=== PATIENT | female | born 1975 | race Caucasian/White ===

== ENCOUNTER → 2017-08-19 | Outpatient (CLI) | payer OTHER ==
[~2017-08-19] MED LIST: AMBI10TA PO; FOLI1TAB4 PO; LORA2TAB9 PO; MULTCAP PO; ROBA500T PO; TRAM50TA2 PO; VIST50CA PO; VITA100T60 PO; atarax PO
[2017-08-19 12:48] LABS: IMMATURE GRANULOCYTE % 0.4 % (0-0); LYMPH # 1.7 10^3/uL (1.5-4.5); LYMPH % 35.7 % (24.0-44.0); MEAN CORPUSCULAR HGB CONC 31.1 g/dl (32.0-36.5); MEAN CORPUSCULAR VOLUME 77.2 fl (80.0-96.0); MONO # 0.2 10^3/uL (0.0-0.8); MONO % 4.1 % (0.0-5.0); NEUTROPHILS # 2.9 10^3/uL (1.8-7.7); NEUTROPHILS % 59.8 % (36.0-66.0); PLATELET COUNT, AUTOMATED 226 10^3/uL (150-450); RED CELL DISTRIBUTION WIDTH 13.8 % (11.5-14.5); WHITE BLOOD COUNT 4.9 10^3/uL (4.0-10.0)
[2017-08-19 13:31] LABS: ALBUMIN 3.3 GM/DL (3.2-5.2); ALBUMIN/GLOBULIN RATIO 0.97 (1.00-1.93); ALKALINE PHOSPHATASE 129 U/L (45-117); ALT/SGPT 46 U/L (12-78); ANION GAP 9 MEQ/L (8-16); AST/SGOT 20 U/L (15-37); BILIRUBIN,TOTAL 0.3 MG/DL (0.2-1.0); BLOOD UREA NITROGEN 12 MG/DL (7-18); CALCIUM LEVEL 8.8 MG/DL (8.5-10.1); CARBON DIOXIDE LEVEL 28 MEQ/L (21-32); CHLORIDE LEVEL 100 MEQ/L (98-107); CREATININE FOR GFR 0.89 MG/DL (0.55-1.02); GLOMERULAR FILTRATION RATE > 60.0 (>58); GLUCOSE, FASTING 100 MG/DL (70-105); POTASSIUM SERUM 4.7 MEQ/L (3.5-5.1); SODIUM LEVEL 137 MEQ/L (136-145); THYROXINE (T4) 9.8 UG/DL (4.5-12.0); TOTAL PROTEIN 6.7 GM/DL (6.4-8.2)
--- NOTE | 2017-08-20 20:50 | ECGEPIP ---
Stationary ECG Study [facility] Test Date: 2017-08-19 Pat Name: MAIK PADILLA Department: Room: - Gender: F Donation Specialist: AYSHA : 1975 Requested By: Phyllis Orona NPP-BC Order Number: [id number] Reading MD: Gabino Blancas Measurements Intervals [place] Rate: 58 P: 9 [place]: 143 QRS: 20 QRSD: 90 T: -25 QT: 410 QTc: 404 Interpretive Statements Sinus bradycardia Somewhat low voltages with incomplete RBBB, slow precordial R-wave progression and persistent S waves in V5 and V6; body habitus versus pulmonary disease. Subtle ST/T-wave abnormalities Slightly slower heart rate but otherwise unchanged from 05/18/14. Electronically Signed On 08-20-2017 20:50:28 EDT by Gabino Blancas
== END ==
LOC: M LAB 11:40
PROVIDERS: ATTEND Nurse Practitioner Family
DX: F32.4 Major depressive disorder, single episode, in partial remission (principal)

== ENCOUNTER → 2017-10-02 | Outpatient (REF) | payer OTHER ==
[2017-10-02 19:01] LABS: ALBUMIN 3.4 GM/DL (3.2-5.2); ALBUMIN/GLOBULIN RATIO 0.85 (1.00-1.93); ALKALINE PHOSPHATASE 135 U/L (45-117); ALT/SGPT 48 U/L (12-78); ANION GAP 10 MEQ/L (8-16); AST/SGOT 27 U/L (7-37); BILIRUBIN,TOTAL 0.3 MG/DL (0.2-1.0); BLOOD UREA NITROGEN 11 MG/DL (7-18); CALCIUM LEVEL 9.1 MG/DL (8.5-10.1); CARBON DIOXIDE LEVEL 30 MEQ/L (21-32); CHLORIDE LEVEL 100 MEQ/L (98-107); CREATININE FOR GFR 0.91 MG/DL (0.55-1.02); GLOMERULAR FILTRATION RATE > 60.0 (>58); GLUCOSE, FASTING 108 MG/DL (70-105); MAGNESIUM LEVEL 2.1 MG/DL (1.8-2.4); POTASSIUM SERUM 3.8 MEQ/L (3.5-5.1); SODIUM LEVEL 140 MEQ/L (136-145); TOTAL PROTEIN 7.4 GM/DL (6.4-8.2)
== END ==
LOC: M SFHCPLAZ 14:53
PROVIDERS: ATTEND Physician Assistant Medical
DX: R06.2 Wheezing (principal); R60.9 Edema, unspecified

== ENCOUNTER → 2017-10-16 | Outpatient (CLI) | payer OTHER ==
--- NOTE | 2017-10-16 16:38 | REPMRS ---
Patient History The patient states she has not had a clinical breast exam in over a year. Baseline Mammogram No known family history of cancer. Digital Woman Screen Mammo: October 16, 2017 - Exam #: [id number] Bilateral CC and MLO view(s) were taken. Technologist: Olivia Tillman, Technologist FINDINGS: There are scattered fibroglandular densities. There is no evidence of cancer on this mammogram. ASSESSMENT: BI-RADS/ACR category 2 mammogram. Benign finding(s). Recommendation Routine screening mammogram of both breasts in 1 year (for women over age 40). This mammogram was interpreted with the aid of an FDA-approved computer-aided dectection system. Electronically Signed By: Barry Bernstein MD 10/16/17 [id number]
== END ==
LOC: M WHC 14:32
PROVIDERS: ATTEND Physician Assistant Medical
DX: Z12.31 Encounter for screening mammogram for malignant neoplasm of breast (principal)

== ENCOUNTER → 2018-05-18 | Outpatient (CLI) | payer OTHER ==
[2018-05-18 11:20] LABS: BASO % 0.1 % (0.0-1.0); HEMATOCRIT 38.2 % (36.0-47.0); HEMOGLOBIN 11.8 g/dl (12.0-15.5); IMMATURE GRANULOCYTE % 0.4 % (0-3.0); LYMPH % 40.2 % (24.0-44.0); MEAN CORPUSCULAR HEMOGLOBIN 22.9 pg (27.0-33.0); MEAN CORPUSCULAR HGB CONC 30.9 g/dl (32.0-36.5); MEAN CORPUSCULAR VOLUME 74.2 fl (80.0-96.0); MONO # 0.5 10^3/uL (0.0-0.8); MONO % 6.5 % (0.0-5.0); NEUTROPHILS % 52.8 % (36.0-66.0); PLATELET COUNT, AUTOMATED 307 10^3/uL (150-450); RED BLOOD COUNT 5.15 10^6/uL (4.00-5.40); WHITE BLOOD COUNT 7.5 10^3/uL (4.0-10.0)
[2018-05-18 11:57] LABS: ALBUMIN 3.2 GM/DL (3.2-5.2); ALBUMIN/GLOBULIN RATIO 0.86 (1.00-1.93); ALKALINE PHOSPHATASE 130 U/L (45-117); ALT/SGPT 38 U/L (12-78); ANION GAP 5 MEQ/L (8-16); AST/SGOT 18 U/L (7-37); BILIRUBIN,TOTAL 0.2 MG/DL (0.2-1.0); BLOOD UREA NITROGEN 20 MG/DL (7-18); CALCIUM LEVEL 8.7 MG/DL (8.5-10.1); CARBON DIOXIDE LEVEL 36 MEQ/L (21-32); CHLORIDE LEVEL 98 MEQ/L (98-107); CHOLESTEROL LEVEL 174 MG/DL (<200); CHOLESTEROL RISK RATIO 5.272 (<5); CREATININE FOR GFR 0.97 MG/DL (0.55-1.30); FREE T4 1.06 NG/DL (0.76-1.46); GLOMERULAR FILTRATION RATE > 60.0 (>58); GLUCOSE, FASTING 111 MG/DL (70-100); HDL CHOLESTEROL 33 MG/DL (>40); LDL CHOLESTEROL 91.8 MG/DL (<100); MAGNESIUM LEVEL 2.3 MG/DL (1.8-2.4); NON-HDL-C 141 MG/DL; POTASSIUM SERUM 3.6 MEQ/L (3.5-5.1); SODIUM LEVEL 139 MEQ/L (136-145); TOTAL PROTEIN 6.9 GM/DL (6.4-8.2); TRIGLYCERIDES LEVEL 246 MG/DL (<150)
== END ==
LOC: M LAB 10:41
DX: R06.2 Wheezing (principal)
CPT/HCPCS: 83735

== ENCOUNTER 2018-08-23 06:06 | Inpatient (IN) | payer OTHER ==
[2018-08-23] MEDS: SUCCINYLCHOLINE INJ 200 MG/10 ML VIAL (J0330) IV ×5 (06:16→06:45)
[2018-08-23] MEDS: NALOXONE INJ 2 MG/2 ML SYRINGE (J2310) IV (06:16)
[2018-08-23] MEDS ORDERED: SUCCINYLCHOLINE INJ 200 MG/10 ML VIAL (J0330) As Ordered (06:22)
[2018-08-23] MEDS: ETOMIDATE INJ 20MG/10ML VIAL IV ×2 (06:35→06:45)
[2018-08-23] MEDS: PROPOFOL 200 MG/20 ML VIAL IV (06:45)
[2018-08-23] MEDS ORDERED: PROPOFOL 1,000 MG/100 ML VIAL As Ordered ×2 (06:45→08:23)
[2018-08-23] MEDS: PROPOFOL 1,000 MG in APPROPRIATE DILUENT 1 EA IV ×6 (07:06→21:35)
[2018-08-23] MEDS ORDERED: ISOVUE-370 76% 100ML VIAL (Q9967) As Ordered ×2 (07:15→08:48)
[2018-08-23] MEDS: NS 1,000 ML IV ×2 (07:15→07:45)
[2018-08-23] MEDS ORDERED: fentaNYL 100 MCG/2 ML INJECTION (J3010) As Ordered (07:23)
[2018-08-23] MEDS: fentaNYL 100 MCG/2 ML INJECTION (J3010) IV ×2 (07:24→07:30)
[2018-08-23] MEDS: NS 850 ML IV (08:00)
[2018-08-23 08:02] LABS: ABG BASE EXCESS 0.3 (-2.0-2.0); ABG HCO3 22.2 MEQ/L (22.0-26.0); ABG O2 SATURATION 97.2 % (95.0-99.0); ABG PARTIAL PRESSURE CO2 28.1 mmHg (35.0-45.0); ABG PARTIAL PRESSURE O2 86.7 mmHg (75.0-100.0); ABG STANDARD HCO3 24.7 MEQ/L (22.0-26.0); ABG pH (ARTERIAL) 7.515 UNITS (7.350-7.450)
[2018-08-23 08:35] LABS: LIPASE 451 U/L (73-393)
[2018-08-23 08:38] LABS: AMMONIA 29 uMOL/L (<32)
[2018-08-23 08:43] LABS: HCG, SERUM QUANTITATIVE < 1.0 MIU/ML
[2018-08-23 08:45] LABS: LACTIC ACID SEPSIS PROTOCOL 3.9 MMOL/L (0.4-2.0)
[2018-08-23 08:57] LABS: ACETAMINOPHEN LEVEL < 2.0 UG/ML (10.0-30.0); ALBUMIN 2.1 GM/DL (3.2-5.2); ALBUMIN/GLOBULIN RATIO 0.46 (1.00-1.93); ALKALINE PHOSPHATASE 231 U/L (45-117); ALT/SGPT 83 U/L (12-78); ANION GAP 9 MEQ/L (8-16); AST/SGOT 168 U/L (7-37); BILIRUBIN,DIRECT 0.3 MG/DL (0.0-0.2); BILIRUBIN,TOTAL 0.7 MG/DL (0.2-1.0); BLOOD UREA NITROGEN 9 MG/DL (7-18); CALCIUM LEVEL 8.1 MG/DL (8.5-10.1); CARBON DIOXIDE LEVEL 29 MEQ/L (21-32); CHLORIDE LEVEL 99 MEQ/L (98-107); CPK CREATINE PHOSPHOKINASE 148 U/L (26-192); CREATININE FOR GFR 1.18 MG/DL (0.55-1.30); ETHYL ALCOHOL (ETHANOL) < 0.003 % (0.000-0.010); GLOMERULAR FILTRATION RATE 53.5 (>58); GLUCOSE, FASTING 233 MG/DL (70-100); SALICYLATE LEVEL < 1.7 MG/DL (5.0-30.0); SODIUM LEVEL 137 MEQ/L (136-145); TOTAL PROTEIN 6.7 GM/DL (6.4-8.2); TROPONIN I 0.72 NG/ML (< 0.10)
[2018-08-23 09:05] LABS: HEMATOCRIT 34.2 % (36.0-47.0); HEMOGLOBIN 10.3 g/dl (12.0-15.5); MEAN CORPUSCULAR HEMOGLOBIN 22.7 pg (27.0-33.0); MEAN CORPUSCULAR HGB CONC 30.1 g/dl (32.0-36.5); MEAN CORPUSCULAR VOLUME 75.3 fl (80.0-96.0); RED BLOOD COUNT 4.54 10^6/uL (4.00-5.40); RED CELL DISTRIBUTION WIDTH 17.2 % (11.5-14.5); WHITE BLOOD COUNT 18.2 10^3/uL (4.0-10.0)
[2018-08-23 09:09] LABS: ADD MANUAL DIFFER YES; DIFF SLIDE NUMBER 87; POS COUNT POS FLAG; POSITIVE MORPH POS FLAG
[2018-08-23 09:28] LABS: BANDS 2 % (< 11); LYMPHOCYTES 13 % (16-52); NEUTROPHILS 85 % (35-75)
[2018-08-23 09:29] LABS: PLATELET CLUMPS MODERATE AMT; PLATELET ESTIMATE NORMAL (NORMAL)
[2018-08-23 09:30] LABS: POLYCHROMASIA 1+
[2018-08-23] MEDS: ACETAMINOPHEN 650 MG SUPP PR (09:45)
[2018-08-23] MEDS: LevoFLOXacin IV 750 MG in APPROPRIATE DILUENT 1 EA IV (09:55)
[2018-08-23 10:00] LABS: NT-PRO BNP 159 PG/ML (<125)
[2018-08-23] MEDS: KCL 10MEQ/100ML SWI (KRUN) 10 MEQ in APPROPRIATE DILUENT 1 EA IV (10:00)
[2018-08-23 10:07] LABS: MAGNESIUM LEVEL 2.3 MG/DL (1.8-2.4)
[2018-08-23] MEDS ORDERED: NOREPINEPHRINE BITARTRATE 8 MG in D5W 492 ML IV ×2 (10:15→10:50)
[2018-08-23] MEDS ORDERED: ALBUTEROL SULFATE 2.5 MG/0.5 ML INH NEB SOLN NEB (10:15)
[2018-08-23] MEDS ORDERED: NS IV ×2 (10:18→10:30)
[2018-08-23] MEDS ORDERED: NOREPINEPHRINE 4 MG/4 ML AMP As Ordered (10:18)
[2018-08-23] MEDS ORDERED: NOREPINEPHRINE BITARTRATE IV ×2 (10:18→10:30)
[2018-08-23] MEDS: NOREPINEPHRINE BITARTRATE IV (10:30)
[2018-08-23] MEDS: NS IV (10:30)
[2018-08-23] MEDS ORDERED: MIDAZOLAM INJ 2 MG/2 ML VIAL (J2250) As Ordered (10:42)
[2018-08-23] MEDS: MIDAZOLAM INJ 2 MG/2 ML VIAL (J2250) IV (10:45)
[2018-08-23 11:00] LABS: AMORPHOUS SEDIMENT RFX SMALL (NEGATIVE); KETONE, URINE AUTO RFX NEGATIVE (NEGATIVE); LEUKOCYTE ESTERASE UR AUTO RFX NEGATIVE (NEGATIVE); MUCUS, URINE RFX SMALL (NEGATIVE); NITRITE, URINE AUTO RFX NEGATIVE (NEGATIVE); RBC, URINE AUTO RFX 6 /HPF (0-3); SPECIFIC GRAVITY UR AUTO RFX 1.046 (1.002-1.035); SQUAM EPITHELIAL CELL UR AURFX 1 /HPF (0-6)
[2018-08-23] MEDS ORDERED: ACETAMINOPHEN 650 MG SUPP PR (11:00)
[2018-08-23 11:02] LABS: WBC, URINE AUTO RFX 41 /HPF (0-3)
[2018-08-23 11:14] LABS: AMPHETAMINES LEVEL URINE NEGATIVE (NEGATIVE); BARBITURATES URINE NEGATIVE (NEGATIVE); BENZODIAZEPINES URINE NEGATIVE (NEGATIVE); CANNABINOIDS URINE NEGATIVE (NEGATIVE); COCAINE METABOLITE URINE NEGATIVE (NEGATIVE); METHADONE URINE POSITIVE (NEGATIVE); OPIATES URINE NEGATIVE (NEGATIVE); PHENCYCLIDINE URINE NEGATIVE (NEGATIVE)
[2018-08-23] MEDS ORDERED: LIDOCAINE 1% MDV 20ML VIAL As Ordered (11:20)
[2018-08-23] MEDS: KCL 40MEQ IN D5/0.45NS 1000ML 1,000 ML IV ×2 (12:01→18:54)
[2018-08-23] MEDS: MEROPENEM INJ 1 GM in APPROPRIATE DILUENT 1 EA IV ×2 (12:08→19:34)
[2018-08-23] MEDS: VANCOMYCIN HCL 1,000 MG, VIAL MATE ADAPTER 1 EACH in D5W/0.2% SODIUM CHLORIDE 250 ML IV ×2 (12:23→18:02)
[2018-08-23 13:17] LABS: INR 1.18; PROTHROMBIN TIME 15.1 SECONDS (12.1-14.4)
[2018-08-23 13:18] LABS: PARTIAL THROMBOPLASTIN TIME 27.1 SECONDS (25.4-37.6)
[2018-08-23] MEDS: ALBUTEROL SULFATE 2.5 MG/0.5 ML INH NEB SOLN NEB ×3 (13:26→20:06)
[2018-08-23 13:38] LABS: TROPONIN I 2.17 NG/ML (< 0.10)
[2018-08-23 16:39] LABS: ANION GAP 10 MEQ/L (8-16); BLOOD UREA NITROGEN 9 MG/DL (7-18); CALCIUM LEVEL 7.5 MG/DL (8.5-10.1); CARBON DIOXIDE LEVEL 24 MEQ/L (21-32); CHLORIDE LEVEL 109 MEQ/L (98-107); CREATININE FOR GFR 1.07 MG/DL (0.55-1.30); GLOMERULAR FILTRATION RATE 59.9 (>58); GLUCOSE, FASTING 212 MG/DL (70-100); POTASSIUM SERUM 3.2 MEQ/L (3.5-5.1); SODIUM LEVEL 143 MEQ/L (136-145)
[2018-08-23] MEDS: ASPIRIN 325 MG TAB NG (18:01)
[2018-08-23] MEDS: CLOPIDOGREL 300 MG TAB (PLAVIX) NG (18:02)
[2018-08-23] MEDS: HEPARIN SOD (PORCINE) 5000 UNITS/ML VIAL SC ×2 (18:02→21:30)
[2018-08-23] MEDS: POTASSIUM CHLORIDE 10% LIQ 20 MEQ/15 ML UDC PO (18:09)
[2018-08-23 20:47] LABS: CPK CREATINE PHOSPHOKINASE 301 U/L (26-192); MB/CK RELATIVE INDEX 2.59 (< OR =4); TROPONIN I 1.82 NG/ML (< 0.10)
[2018-08-23] MEDS ORDERED: CHLORHEXIDINE ORAL RINSE 0.12%/15ML 120ML BOTTLE MT (21:00)
[2018-08-23] MEDS: NOREPINEPHRINE BITARTRATE 8 MG in D5W 492 ML IV (22:14)
[2018-08-23] MEDS: CHLORHEXIDINE ORAL RINSE 0.12%/15ML 120ML BOTTLE MT (23:40)
[2018-08-24] MEDS: ALBUTEROL SULFATE 2.5 MG/0.5 ML INH NEB SOLN NEB ×7 (00:32→23:36)
[2018-08-24] MEDS: PROPOFOL 1,000 MG in APPROPRIATE DILUENT 1 EA IV ×5 (01:33→23:21)
[2018-08-24] MEDS: KCL 40MEQ IN D5/0.45NS 1000ML 1,000 ML IV ×4 (01:34→20:25)
[2018-08-24] MEDS: MEROPENEM INJ 1 GM in APPROPRIATE DILUENT 1 EA IV ×3 (04:24→20:25)
[2018-08-24] MEDS: VANCOMYCIN HCL 1,000 MG, VIAL MATE ADAPTER 1 EACH in D5W/0.2% SODIUM CHLORIDE 250 ML IV ×2 (05:19→17:42)
[2018-08-24] MEDS: HEPARIN SOD (PORCINE) 5000 UNITS/ML VIAL SC ×3 (05:19→20:26)
[2018-08-24 05:42] LABS: ABG BASE EXCESS 1.7 (-2.0-2.0); ABG HCO3 25.1 MEQ/L (22.0-26.0); ABG O2 SATURATION 95.6 % (95.0-99.0); ABG PARTIAL PRESSURE CO2 34.5 mmHg (35.0-45.0); ABG PARTIAL PRESSURE O2 76.3 mmHg (75.0-100.0); ABG TOTAL CO2 26.1 MEQ/L (22.0-29.0); ABG pH (ARTERIAL) 7.479 UNITS (7.350-7.450)
[2018-08-24 06:58] LABS: BASO % 0.2 % (0.0-1.0); EOS % 0.1 % (0.0-3.0); HEMATOCRIT 28.9 % (36.0-47.0); HEMOGLOBIN 8.9 g/dl (12.0-15.5); IMMATURE GRANULOCYTE % 1.9 % (0-3.0); LYMPH # 1.8 10^3/uL (1.5-4.5); LYMPH % 20.1 % (24.0-44.0); MEAN CORPUSCULAR HEMOGLOBIN 22.9 pg (27.0-33.0); MEAN CORPUSCULAR HGB CONC 30.8 g/dl (32.0-36.5); MEAN CORPUSCULAR VOLUME 74.5 fl (80.0-96.0); MONO # 0.5 10^3/uL (0.0-0.8); MONO % 5.6 % (0.0-5.0); NEUTROPHILS # 6.4 10^3/uL (1.8-7.7); NEUTROPHILS % 72.1 % (36.0-66.0); PLATELET COUNT, AUTOMATED 269 10^3/uL (150-450); RED BLOOD COUNT 3.88 10^6/uL (4.00-5.40); RED CELL DISTRIBUTION WIDTH 17.7 % (11.5-14.5); WHITE BLOOD COUNT 8.8 10^3/uL (4.0-10.0)
[2018-08-24 07:28] LABS: ALBUMIN 1.7 GM/DL (3.2-5.2); ALBUMIN/GLOBULIN RATIO 0.41 (1.00-1.93); ALKALINE PHOSPHATASE 133 U/L (45-117); ALT/SGPT 47 U/L (12-78); ANION GAP 9 MEQ/L (8-16); AST/SGOT 46 U/L (7-37); BILIRUBIN,TOTAL 0.2 MG/DL (0.2-1.0); BLOOD UREA NITROGEN 5 MG/DL (7-18); CALCIUM LEVEL 7.7 MG/DL (8.5-10.1); CARBON DIOXIDE LEVEL 25 MEQ/L (21-32); CHLORIDE LEVEL 111 MEQ/L (98-107); CHOLESTEROL LEVEL 91 MG/DL (< 200); CPK CREATINE PHOSPHOKINASE 344 U/L (26-192); CREATININE FOR GFR 0.72 MG/DL (0.55-1.30); GLOMERULAR FILTRATION RATE > 60.0 (>58); GLUCOSE, FASTING 181 MG/DL (70-100); LDH LACTATE DEHYDROGENASE 361 U/L (84-246); PHOSPHORUS LEVEL 2.4 MG/DL (2.5-4.9); POTASSIUM SERUM 2.7 MEQ/L (3.5-5.1); SODIUM LEVEL 145 MEQ/L (136-145); TOTAL PROTEIN 5.8 GM/DL (6.4-8.2); TRIGLYCERIDES LEVEL 139 MG/DL (<150)
[2018-08-24] MEDS: CHLORHEXIDINE ORAL RINSE 0.12%/15ML 120ML BOTTLE MT ×2 (08:06→20:25)
[2018-08-24] MEDS: POTASSIUM CHLORIDE 10% LIQ 20 MEQ/15 ML UDC GT (08:06)
[2018-08-24] MEDS: ASPIRIN 325 MG TAB NG (08:06)
[2018-08-24] MEDS: PANTOPRAZOLE 40MG INJ (PROTONIX) (C9113) IV (08:06)
[2018-08-24] MEDS: CLOPIDOGREL 75 MG TAB NG (08:06)
[2018-08-24] MEDS: methylPREDNISolone INJ 125 MG/2 ML VIAL (J2930) IV ×2 (10:14→16:09)
[2018-08-24 12:49] LABS: POTASSIUM SERUM 3.6 MEQ/L (3.5-5.1)
[2018-08-24 13:03] LABS: BEDSIDE GLUCOSE 200 MG/DL (70-105)
[2018-08-24] MEDS ORDERED: METOCLOPRAMIDE INJ 10MG/2ML VIAL (J2765) IV (15:45)
[2018-08-24] MEDS ORDERED: METOCLOPRAMIDE INJ 10MG/2ML VIAL (J2765) As Ordered (16:07)
[2018-08-24] MEDS: METOCLOPRAMIDE INJ 10MG/2ML VIAL (J2765) IV ×2 (16:11→23:20)
[2018-08-24 17:47] LABS: VANCOMYCIN LEVEL TROUGH 7.6 UG/ML (10.0-20.0)
[2018-08-24 18:02] LABS: BEDSIDE GLUCOSE 272 MG/DL (70-105)
[2018-08-24] MEDS: POTASSIUM CHLORIDE 10% LIQ 20 MEQ/15 ML UDC PO (20:26)
[2018-08-25] MEDS: VANCOMYCIN HCL 1,000 MG, VIAL MATE ADAPTER 1 EACH in D5W/0.2% SODIUM CHLORIDE 250 ML IV ×2 (01:48→09:09)
[2018-08-25] MEDS: methylPREDNISolone INJ 125 MG/2 ML VIAL (J2930) IV ×3 (01:48→16:36)
[2018-08-25] MEDS: PROPOFOL 1,000 MG in APPROPRIATE DILUENT 1 EA IV ×4 (02:53→19:54)
[2018-08-25] MEDS: KCL 40MEQ IN D5/0.45NS 1000ML 1,000 ML IV ×3 (03:47→18:03)
[2018-08-25] MEDS: MEROPENEM INJ 1 GM in APPROPRIATE DILUENT 1 EA IV (03:47)
[2018-08-25] MEDS: ALBUTEROL SULFATE 2.5 MG/0.5 ML INH NEB SOLN NEB ×6 (04:07→23:35)
[2018-08-25 05:45] LABS: ABG BASE EXCESS 1.4 (-2.0-2.0); ABG HCO3 24.2 MEQ/L (22.0-26.0); ABG O2 SATURATION 97.1 % (95.0-99.0); ABG PARTIAL PRESSURE CO2 30.9 mmHg (35.0-45.0); ABG PARTIAL PRESSURE O2 82.5 mmHg (75.0-100.0); ABG STANDARD HCO3 25.7 MEQ/L (22.0-26.0); ABG TOTAL CO2 25.1 MEQ/L (22.0-29.0); ABG pH (ARTERIAL) 7.511 UNITS (7.350-7.450)
[2018-08-25] MEDS: HEPARIN SOD (PORCINE) 5000 UNITS/ML VIAL SC ×3 (06:00→20:00)
[2018-08-25] MEDS: METOCLOPRAMIDE INJ 10MG/2ML VIAL (J2765) IV ×3 (06:04→22:00)
[2018-08-25 07:06] LABS: BASO % 0.1 % (0.0-1.0); HEMATOCRIT 26.3 % (36.0-47.0); HEMOGLOBIN 8.2 g/dl (12.0-15.5); IMMATURE GRANULOCYTE % 2.1 % (0-3.0); LYMPH # 1.5 10^3/uL (1.5-4.5); LYMPH % 20.5 % (24.0-44.0); MEAN CORPUSCULAR HEMOGLOBIN 23.1 pg (27.0-33.0); MEAN CORPUSCULAR HGB CONC 31.2 g/dl (32.0-36.5); MEAN CORPUSCULAR VOLUME 74.1 fl (80.0-96.0); MONO # 0.5 10^3/uL (0.0-0.8); MONO % 6.7 % (0.0-5.0); NEUTROPHILS # 5.3 10^3/uL (1.8-7.7); NEUTROPHILS % 70.6 % (36.0-66.0); PLATELET COUNT, AUTOMATED 216 10^3/uL (150-450); RED BLOOD COUNT 3.55 10^6/uL (4.00-5.40); WHITE BLOOD COUNT 7.5 10^3/uL (4.0-10.0)
[2018-08-25 08:02] LABS: ALBUMIN 1.6 GM/DL (3.2-5.2); ALBUMIN/GLOBULIN RATIO 0.52 (1.00-1.93); ALKALINE PHOSPHATASE 106 U/L (45-117); ALT/SGPT 38 U/L (12-78); ANION GAP 5 MEQ/L (8-16); AST/SGOT 26 U/L (7-37); BILIRUBIN,TOTAL 0.1 MG/DL (0.2-1.0); BLOOD UREA NITROGEN 6 MG/DL (7-18); CALCIUM LEVEL 7.6 MG/DL (8.5-10.1); CARBON DIOXIDE LEVEL 27 MEQ/L (21-32); CHLORIDE LEVEL 106 MEQ/L (98-107); CHOLESTEROL LEVEL 100 MG/DL (< 200); CPK CREATINE PHOSPHOKINASE 181 U/L (26-192); CREATININE FOR GFR 0.64 MG/DL (0.55-1.30); GLOMERULAR FILTRATION RATE > 60.0 (>58); GLUCOSE, FASTING 286 MG/DL (70-100); LDH LACTATE DEHYDROGENASE 430 U/L (84-246); PHOSPHORUS LEVEL 1.8 MG/DL (2.5-4.9); POTASSIUM SERUM 4.3 MEQ/L (3.5-5.1); SODIUM LEVEL 138 MEQ/L (136-145); TOTAL PROTEIN 4.7 GM/DL (6.4-8.2); TRIGLYCERIDES LEVEL 152 MG/DL (<150)
[2018-08-25] MEDS: PANTOPRAZOLE 40MG INJ (PROTONIX) (C9113) IV (09:08)
[2018-08-25] MEDS: CLOPIDOGREL 75 MG TAB NG (09:09)
[2018-08-25] MEDS: ASPIRIN 325 MG TAB NG (09:09)
[2018-08-25] MEDS: NEUTRA-PHOS 1.25 GM PACKET PO ×3 (09:09→20:00)
[2018-08-25] MEDS: CHLORHEXIDINE ORAL RINSE 0.12%/15ML 120ML BOTTLE MT ×2 (09:10→19:54)
[2018-08-25] MEDS: POTASSIUM CHLORIDE 10% LIQ 20 MEQ/15 ML UDC PO ×2 (09:12→20:00)
[2018-08-25 09:49] LABS: ABG BASE EXCESS -0.9 (-2.0-2.0); ABG HCO3 20.8 MEQ/L (22.0-26.0); ABG O2 SATURATION 92.2 % (95.0-99.0); ABG PARTIAL PRESSURE CO2 25.3 mmHg (35.0-45.0); ABG PARTIAL PRESSURE O2 59.6 mmHg (75.0-100.0); ABG STANDARD HCO3 23.7 MEQ/L (22.0-26.0); ABG TOTAL CO2 21.6 MEQ/L (22.0-29.0); ABG pH (ARTERIAL) 7.533 UNITS (7.350-7.450)
[2018-08-25] MEDS: MIDAZOLAM INJ 2 MG/2 ML VIAL (J2250) IV ×2 (11:40→14:51)
[2018-08-25] MEDS: HumaLOG INSULIN (NovoLOG) PER UNIT SC ×2 (12:00→17:57)
[2018-08-25 12:29] LABS: BEDSIDE GLUCOSE 360 MG/DL (70-105)
[2018-08-25] MEDS ORDERED: GLUCOSE 4 GM CHEW TABLET PO (12:30)
[2018-08-25] MEDS ORDERED: GLUCAGON FOR INJ 1 MG VIAL (J1610) SC (12:30)
[2018-08-25] MEDS ORDERED: DEXTROSE 50% 50 ML SYRINGE IV (12:30)
[2018-08-25] MEDS: LevoFLOXacin IV 750 MG in APPROPRIATE DILUENT 1 EA IV (14:51)
[2018-08-25 16:47] LABS: BEDSIDE GLUCOSE 332 MG/DL (70-105)
[2018-08-25 17:22] LABS: VANCOMYCIN LEVEL TROUGH 11.2 UG/ML (10.0-20.0)
[2018-08-25] MEDS: VANCOMYCIN HCL 1,000 MG, VIAL MATE ADAPTER 1 EACH in D5W 250 ML IV ×2 (17:56→19:53)
[2018-08-25 23:20] LABS: BEDSIDE GLUCOSE 341 MG/DL (70-105)
[2018-08-26] MEDS: HumaLOG INSULIN (NovoLOG) PER UNIT SC ×4 (00:03→18:05)
[2018-08-26] MEDS: KCL 40MEQ IN D5/0.45NS 1000ML 1,000 ML IV (00:03)
[2018-08-26] MEDS: methylPREDNISolone INJ 125 MG/2 ML VIAL (J2930) IV (00:04)
[2018-08-26] MEDS: PROPOFOL 1,000 MG in APPROPRIATE DILUENT 1 EA IV ×6 (00:24→23:16)
[2018-08-26] MEDS: VANCOMYCIN HCL 1,000 MG, VIAL MATE ADAPTER 1 EACH in D5W 250 ML IV (02:28)
[2018-08-26] MEDS: METOCLOPRAMIDE INJ 10MG/2ML VIAL (J2765) IV ×4 (04:00→20:44)
[2018-08-26] MEDS: ALBUTEROL SULFATE 2.5 MG/0.5 ML INH NEB SOLN NEB ×6 (04:35→23:14)
[2018-08-26 04:44] LABS: BASO % 0.2 % (0.0-1.0); HEMATOCRIT 27.8 % (36.0-47.0); HEMOGLOBIN 8.3 g/dl (12.0-15.5); IMMATURE GRANULOCYTE % 2.5 % (0-3.0); LYMPH # 0.9 10^3/uL (1.5-4.5); LYMPH % 13.4 % (24.0-44.0); MEAN CORPUSCULAR HEMOGLOBIN 22.7 pg (27.0-33.0); MEAN CORPUSCULAR HGB CONC 29.9 g/dl (32.0-36.5); MEAN CORPUSCULAR VOLUME 76.2 fl (80.0-96.0); MONO # 0.2 10^3/uL (0.0-0.8); MONO % 3.1 % (0.0-5.0); NEUTROPHILS # 5.2 10^3/uL (1.8-7.7); NEUTROPHILS % 80.8 % (36.0-66.0); PLATELET COUNT, AUTOMATED 234 10^3/uL (150-450); RED BLOOD COUNT 3.65 10^6/uL (4.00-5.40); RED CELL DISTRIBUTION WIDTH 18.2 % (11.5-14.5); WHITE BLOOD COUNT 6.4 10^3/uL (4.0-10.0)
[2018-08-26 05:10] LABS: ALBUMIN 1.8 GM/DL (3.2-5.2); ALBUMIN/GLOBULIN RATIO 0.45 (1.00-1.93); ALKALINE PHOSPHATASE 104 U/L (45-117); ALT/SGPT 41 U/L (12-78); ANION GAP 5 MEQ/L (8-16); AST/SGOT 19 U/L (7-37); BILIRUBIN,TOTAL 0.2 MG/DL (0.2-1.0); BLOOD UREA NITROGEN 10 MG/DL (7-18); CALCIUM LEVEL 8.1 MG/DL (8.5-10.1); CARBON DIOXIDE LEVEL 27 MEQ/L (21-32); CHLORIDE LEVEL 103 MEQ/L (98-107); CHOLESTEROL LEVEL 110 MG/DL (< 200); CPK CREATINE PHOSPHOKINASE 138 U/L (26-192); CREATININE FOR GFR 0.68 MG/DL (0.55-1.30); GLOMERULAR FILTRATION RATE > 60.0 (>58); GLUCOSE, FASTING 360 MG/DL (70-100); LDH LACTATE DEHYDROGENASE 261 U/L (84-246); PHOSPHORUS LEVEL 2.5 MG/DL (2.5-4.9); POTASSIUM SERUM 5.3 MEQ/L (3.5-5.1); SODIUM LEVEL 135 MEQ/L (136-145); TOTAL PROTEIN 5.8 GM/DL (6.4-8.2); TRIGLYCERIDES LEVEL 185 MG/DL (<150)
[2018-08-26 05:40] LABS: ABG BASE EXCESS 2.5 (-2.0-2.0); ABG HCO3 25.6 MEQ/L (22.0-26.0); ABG O2 SATURATION 97.2 % (95.0-99.0); ABG PARTIAL PRESSURE CO2 33.6 mmHg (35.0-45.0); ABG PARTIAL PRESSURE O2 86.8 mmHg (75.0-100.0); ABG STANDARD HCO3 26.7 MEQ/L (22.0-26.0); ABG TOTAL CO2 26.6 MEQ/L (22.0-29.0); ABG pH (ARTERIAL) 7.499 UNITS (7.350-7.450)
[2018-08-26] MEDS: HEPARIN SOD (PORCINE) 5000 UNITS/ML VIAL SC ×3 (05:41→20:45)
[2018-08-26] MEDS: KCL 20MEQ IN D5/0.45NS 1000ML 1,000 ML IV ×2 (09:44→22:20)
[2018-08-26] MEDS: NEUTRA-PHOS 1.25 GM PACKET PO ×3 (09:48→20:44)
[2018-08-26] MEDS: PANTOPRAZOLE 40MG INJ (PROTONIX) (C9113) IV (09:49)
[2018-08-26] MEDS: CHLORHEXIDINE ORAL RINSE 0.12%/15ML 120ML BOTTLE MT ×2 (09:49→20:44)
[2018-08-26] MEDS: methylPREDNISolone INJ 40 MG/1 ML VIAL (J2920) IV ×2 (09:49→17:07)
[2018-08-26] MEDS: CLOPIDOGREL 75 MG TAB NG (09:49)
[2018-08-26] MEDS: ASPIRIN 325 MG TAB NG (09:49)
[2018-08-26 13:07] LABS: BEDSIDE GLUCOSE 238 MG/DL (70-105)
[2018-08-26] MEDS: cefTRIAXone SOD 1 GM in D5W MINI-BAG PLUS 50 ML IV (13:18)
[2018-08-26 17:46] LABS: BEDSIDE GLUCOSE 210 MG/DL (70-105)
[2018-08-27 00:15] LABS: BEDSIDE GLUCOSE 193 MG/DL (70-105)
[2018-08-27] MEDS: methylPREDNISolone INJ 40 MG/1 ML VIAL (J2920) IV ×2 (01:00→12:44)
[2018-08-27] MEDS: PROPOFOL 1,000 MG in APPROPRIATE DILUENT 1 EA IV ×2 (03:29→07:40)
[2018-08-27] MEDS: METOCLOPRAMIDE INJ 10MG/2ML VIAL (J2765) IV ×4 (04:00→18:09)
[2018-08-27] MEDS: ALBUTEROL SULFATE 2.5 MG/0.5 ML INH NEB SOLN NEB ×5 (04:27→20:51)
[2018-08-27 05:34] LABS: ABG BASE EXCESS 4.2 (-2.0-2.0); ABG O2 SATURATION 95.1 % (95.0-99.0); ABG PARTIAL PRESSURE CO2 33.7 mmHg (35.0-45.0); ABG PARTIAL PRESSURE O2 71.6 mmHg (75.0-100.0); ABG STANDARD HCO3 28.2 MEQ/L (22.0-26.0); ABG TOTAL CO2 28.1 MEQ/L (22.0-29.0); ABG pH (ARTERIAL) 7.522 UNITS (7.350-7.450)
[2018-08-27] MEDS: HEPARIN SOD (PORCINE) 5000 UNITS/ML VIAL SC ×3 (05:40→21:06)
[2018-08-27] MEDS: HumaLOG INSULIN (NovoLOG) PER UNIT SC ×4 (05:40→18:08)
[2018-08-27 05:41] LABS: BEDSIDE GLUCOSE 194 MG/DL (70-105)
[2018-08-27 05:47] LABS: HEMATOCRIT 30.6 % (36.0-47.0); HEMOGLOBIN 9.4 g/dl (12.0-15.5); IMMATURE GRANULOCYTE % 2.6 % (0-3.0); LYMPH # 1.6 10^3/uL (1.5-4.5); LYMPH % 20.5 % (24.0-44.0); MEAN CORPUSCULAR HEMOGLOBIN 22.8 pg (27.0-33.0); MEAN CORPUSCULAR HGB CONC 30.7 g/dl (32.0-36.5); MEAN CORPUSCULAR VOLUME 74.3 fl (80.0-96.0); MONO # 0.4 10^3/uL (0.0-0.8); MONO % 5.2 % (0.0-5.0); NEUTROPHILS # 5.5 10^3/uL (1.8-7.7); NEUTROPHILS % 71.7 % (36.0-66.0); PLATELET COUNT, AUTOMATED 310 10^3/uL (150-450); RED BLOOD COUNT 4.12 10^6/uL (4.00-5.40); RED CELL DISTRIBUTION WIDTH 18.5 % (11.5-14.5); WHITE BLOOD COUNT 7.7 10^3/uL (4.0-10.0)
[2018-08-27 06:34] LABS: ALBUMIN/GLOBULIN RATIO 0.56 (1.00-1.93); ALKALINE PHOSPHATASE 123 U/L (45-117); ALT/SGPT 67 U/L (12-78); ANION GAP 6 MEQ/L (8-16); AST/SGOT 52 U/L (7-37); BILIRUBIN,TOTAL 0.3 MG/DL (0.2-1.0); BLOOD UREA NITROGEN 18 MG/DL (7-18); CALCIUM LEVEL 8.6 MG/DL (8.5-10.1); CARBON DIOXIDE LEVEL 30 MEQ/L (21-32); CHLORIDE LEVEL 102 MEQ/L (98-107); CHOLESTEROL LEVEL 137 MG/DL (< 200); CPK CREATINE PHOSPHOKINASE 150 U/L (26-192); CREATININE FOR GFR 0.66 MG/DL (0.55-1.30); GLOMERULAR FILTRATION RATE > 60.0 (>58); GLUCOSE, FASTING 179 MG/DL (70-100); LDH LACTATE DEHYDROGENASE 311 U/L (84-246); POTASSIUM SERUM 4.9 MEQ/L (3.5-5.1); SODIUM LEVEL 138 MEQ/L (136-145); TOTAL PROTEIN 5.6 GM/DL (6.4-8.2); TRIGLYCERIDES LEVEL 283 MG/DL (<150)
[2018-08-27] MEDS: CLOPIDOGREL 75 MG TAB NG (08:32)
[2018-08-27] MEDS: PANTOPRAZOLE 40MG INJ (PROTONIX) (C9113) IV (08:32)
[2018-08-27] MEDS: ASPIRIN 325 MG TAB NG (08:32)
[2018-08-27] MEDS: NEUTRA-PHOS 1.25 GM PACKET PO (08:32)
[2018-08-27] MEDS: CHLORHEXIDINE ORAL RINSE 0.12%/15ML 120ML BOTTLE MT ×2 (08:32→20:38)
[2018-08-27] MEDS: MORPHINE 4 MG/ML 1ML VIAL/SYRINGE (J2270) IV ×2 (10:49→15:57)
[2018-08-27 12:05] LABS: BEDSIDE GLUCOSE 161 MG/DL (70-105)
[2018-08-27] MEDS: KCL 20MEQ IN D5/0.45NS 1000ML 1,000 ML IV (12:10)
[2018-08-27] MEDS: cefTRIAXone SOD 1 GM in D5W MINI-BAG PLUS 50 ML IV (12:45)
[2018-08-27] MEDS ORDERED: ONDANSETRON 4MG/2ML VIAL (J2405) IV (15:45)
[2018-08-27 17:49] LABS: BEDSIDE GLUCOSE 182 MG/DL (70-105)
[2018-08-27 23:58] LABS: BEDSIDE GLUCOSE 137 MG/DL (70-105)
[2018-08-28] MEDS: methylPREDNISolone INJ 40 MG/1 ML VIAL (J2920) IV (00:05)
[2018-08-28] MEDS: HumaLOG INSULIN (NovoLOG) PER UNIT SC ×4 (00:05→17:14)
[2018-08-28] MEDS: METOCLOPRAMIDE INJ 10MG/2ML VIAL (J2765) IV ×4 (00:05→17:14)
[2018-08-28] MEDS: KCL 20MEQ IN D5/0.45NS 1000ML 1,000 ML IV (01:41)
[2018-08-28] MEDS ORDERED: SODIUM CHLORIDE 0.9% INJ 10 ML SYR IV (03:00)
[2018-08-28] MEDS: ALBUTEROL SULFATE 2.5 MG/0.5 ML INH NEB SOLN NEB ×7 (04:22→23:54)
[2018-08-28 05:58] LABS: BEDSIDE GLUCOSE 180 MG/DL (70-105)
[2018-08-28] MEDS: SODIUM CHLORIDE 0.9% INJ 10 ML SYR IV ×3 (06:00→21:33)
[2018-08-28 06:15] LABS: ABG BASE EXCESS 4.6 (-2.0-2.0); ABG HCO3 27.4 MEQ/L (22.0-26.0); ABG O2 SATURATION 99.3 % (95.0-99.0); ABG PARTIAL PRESSURE CO2 34.2 mmHg (35.0-45.0); ABG PARTIAL PRESSURE O2 149.9 mmHg (75.0-100.0); ABG STANDARD HCO3 28.6 MEQ/L (22.0-26.0); ABG TOTAL CO2 28.4 MEQ/L (22.0-29.0); ABG pH (ARTERIAL) 7.521 UNITS (7.350-7.450)
[2018-08-28] MEDS: HEPARIN SOD (PORCINE) 5000 UNITS/ML VIAL SC (06:16)
[2018-08-28 06:37] LABS: BASO % 0.2 % (0.0-1.0); HEMOGLOBIN 10.2 g/dl (12.0-15.5); IMMATURE GRANULOCYTE % 1.8 % (0-3.0); LYMPH # 1.6 10^3/uL (1.5-4.5); LYMPH % 16.9 % (24.0-44.0); MEAN CORPUSCULAR HEMOGLOBIN 22.7 pg (27.0-33.0); MEAN CORPUSCULAR VOLUME 75.6 fl (80.0-96.0); MONO # 0.4 10^3/uL (0.0-0.8); MONO % 3.7 % (0.0-5.0); NEUTROPHILS # 7.4 10^3/uL (1.8-7.7); NEUTROPHILS % 77.4 % (36.0-66.0); PLATELET COUNT, AUTOMATED 324 10^3/uL (150-450); RED CELL DISTRIBUTION WIDTH 18.4 % (11.5-14.5); WHITE BLOOD COUNT 9.5 10^3/uL (4.0-10.0)
[2018-08-28 07:23] LABS: ALBUMIN 2.3 GM/DL (3.2-5.2); ALBUMIN/GLOBULIN RATIO 0.55 (1.00-1.93); ALKALINE PHOSPHATASE 110 U/L (45-117); ALT/SGPT 58 U/L (12-78); ANION GAP 7 MEQ/L (8-16); AST/SGOT 23 U/L (7-37); BILIRUBIN,TOTAL 0.3 MG/DL (0.2-1.0); BLOOD UREA NITROGEN 16 MG/DL (7-18); CALCIUM LEVEL 8.7 MG/DL (8.5-10.1); CARBON DIOXIDE LEVEL 29 MEQ/L (21-32); CHLORIDE LEVEL 103 MEQ/L (98-107); CHOLESTEROL LEVEL 158 MG/DL (< 200); CPK CREATINE PHOSPHOKINASE 73 U/L (26-192); CREATININE FOR GFR 0.67 MG/DL (0.55-1.30); GLOMERULAR FILTRATION RATE > 60.0 (>58); GLUCOSE, FASTING 179 MG/DL (70-100); LDH LACTATE DEHYDROGENASE 288 U/L (84-246); PHOSPHORUS LEVEL 4.6 MG/DL (2.5-4.9); POTASSIUM SERUM 3.8 MEQ/L (3.5-5.1); SODIUM LEVEL 139 MEQ/L (136-145); TOTAL PROTEIN 6.5 GM/DL (6.4-8.2); TRIGLYCERIDES LEVEL 309 MG/DL (<150)
[2018-08-28] MEDS: CHLORHEXIDINE ORAL RINSE 0.12%/15ML 120ML BOTTLE MT ×2 (09:00→21:33)
[2018-08-28] MEDS: ASPIRIN 325 MG TAB NG (09:21)
[2018-08-28] MEDS: PANTOPRAZOLE 40MG INJ (PROTONIX) (C9113) IV (09:21)
[2018-08-28] MEDS: CLOPIDOGREL 75 MG TAB NG (09:21)
[2018-08-28 11:32] LABS: BEDSIDE GLUCOSE 116 MG/DL (70-105)
[2018-08-28] MEDS: cefTRIAXone SOD 1 GM in D5W MINI-BAG PLUS 50 ML IV (13:05)
[2018-08-28 17:11] LABS: BEDSIDE GLUCOSE 133 MG/DL (70-105)
[2018-08-28] MEDS: ENOXAPARIN 40 MG/0.4 ML SYRINGE (J1650) SC (21:33)
[2018-08-29 00:07] LABS: BEDSIDE GLUCOSE 126 MG/DL (70-105)
[2018-08-29] MEDS: METOCLOPRAMIDE INJ 10MG/2ML VIAL (J2765) IV ×5 (00:07→22:39)
[2018-08-29] MEDS: HumaLOG INSULIN (NovoLOG) PER UNIT SC ×4 (00:11→17:21)
[2018-08-29] MEDS: ALBUTEROL SULFATE 2.5 MG/0.5 ML INH NEB SOLN NEB ×6 (04:23→23:32)
[2018-08-29 04:31] LABS: HEMATOCRIT 35.3 % (36.0-47.0); HEMOGLOBIN 10.6 g/dl (12.0-15.5); MEAN CORPUSCULAR HEMOGLOBIN 22.5 pg (27.0-33.0); MEAN CORPUSCULAR VOLUME 74.8 fl (80.0-96.0); PLATELET COUNT, AUTOMATED 354 10^3/uL (150-450); RED BLOOD COUNT 4.72 10^6/uL (4.00-5.40); RED CELL DISTRIBUTION WIDTH 17.7 % (11.5-14.5)
[2018-08-29 04:55] LABS: ALBUMIN 2.3 GM/DL (3.2-5.2); ALBUMIN/GLOBULIN RATIO 0.56 (1.00-1.93); ALKALINE PHOSPHATASE 123 U/L (45-117); ALT/SGPT 77 U/L (12-78); ANION GAP 8 MEQ/L (8-16); AST/SGOT 51 U/L (7-37); BILIRUBIN,TOTAL 0.6 MG/DL (0.2-1.0); BLOOD UREA NITROGEN 17 MG/DL (7-18); CALCIUM LEVEL 8.5 MG/DL (8.5-10.1); CARBON DIOXIDE LEVEL 29 MEQ/L (21-32); CHLORIDE LEVEL 104 MEQ/L (98-107); CHOLESTEROL LEVEL 169 MG/DL (< 200); CPK CREATINE PHOSPHOKINASE 38 U/L (26-192); CREATININE FOR GFR 0.57 MG/DL (0.55-1.30); GLOMERULAR FILTRATION RATE > 60.0 (>58); GLUCOSE, FASTING 108 MG/DL (70-100); LDH LACTATE DEHYDROGENASE 299 U/L (84-246); PHOSPHORUS LEVEL 4.2 MG/DL (2.5-4.9); POTASSIUM SERUM 3.4 MEQ/L (3.5-5.1); SODIUM LEVEL 141 MEQ/L (136-145); TOTAL PROTEIN 6.4 GM/DL (6.4-8.2); TRIGLYCERIDES LEVEL 231 MG/DL (<150)
[2018-08-29 05:18] LABS: BEDSIDE GLUCOSE 124 MG/DL (70-105)
[2018-08-29] MEDS: SODIUM CHLORIDE 0.9% INJ 10 ML SYR IV ×3 (05:27→22:39)
[2018-08-29 05:53] LABS: ABG BASE EXCESS 3.9 (-2.0-2.0); ABG O2 SATURATION 92.3 % (95.0-99.0); ABG PARTIAL PRESSURE O2 61.5 mmHg (75.0-100.0); ABG STANDARD HCO3 27.9 MEQ/L (22.0-26.0); ABG pH (ARTERIAL) 7.542 UNITS (7.350-7.450)
[2018-08-29] MEDS: PANTOPRAZOLE 40MG INJ (PROTONIX) (C9113) IV (09:16)
[2018-08-29] MEDS: ASPIRIN 325 MG TAB NG (09:16)
[2018-08-29] MEDS: CLOPIDOGREL 75 MG TAB NG (09:17)
[2018-08-29] MEDS: POTASSIUM CHLORIDE 10% LIQ 20 MEQ/15 ML UDC PO (09:17)
[2018-08-29] MEDS: CHLORHEXIDINE ORAL RINSE 0.12%/15ML 120ML BOTTLE MT ×2 (09:18→21:10)
[2018-08-29 11:41] LABS: ABG BASE EXCESS 0.8 (-2.0-2.0); ABG HCO3 22.6 MEQ/L (22.0-26.0); ABG O2 SATURATION 95.6 % (95.0-99.0); ABG PARTIAL PRESSURE CO2 27.8 mmHg (35.0-45.0); ABG PARTIAL PRESSURE O2 73.9 mmHg (75.0-100.0); ABG STANDARD HCO3 25.2 MEQ/L (22.0-26.0); ABG TOTAL CO2 23.4 MEQ/L (22.0-29.0); ABG pH (ARTERIAL) 7.527 UNITS (7.350-7.450)
[2018-08-29 12:23] LABS: BEDSIDE GLUCOSE 126 MG/DL (70-105)
[2018-08-29] MEDS: cefTRIAXone SOD 1 GM in D5W MINI-BAG PLUS 50 ML IV (12:29)
[2018-08-29] MEDS: PROPOFOL 1,000 MG in APPROPRIATE DILUENT 1 EA IV (12:36)
[2018-08-29 17:12] LABS: BEDSIDE GLUCOSE 100 MG/DL (70-105)
[2018-08-29] MEDS: ENOXAPARIN 40 MG/0.4 ML SYRINGE (J1650) SC (21:03)
[2018-08-30 00:30] LABS: BEDSIDE GLUCOSE 121 MG/DL (70-105)
[2018-08-30] MEDS: HumaLOG INSULIN (NovoLOG) PER UNIT SC ×4 (00:51→17:06)
[2018-08-30] MEDS: ALBUTEROL SULFATE 2.5 MG/0.5 ML INH NEB SOLN NEB ×6 (03:55→23:35)
[2018-08-30 04:37] LABS: HEMOGLOBIN 12.1 g/dl (12.0-15.5); MEAN CORPUSCULAR HEMOGLOBIN 22.4 pg (27.0-33.0); MEAN CORPUSCULAR HGB CONC 30.3 g/dl (32.0-36.5); MEAN CORPUSCULAR VOLUME 74.1 fl (80.0-96.0); PLATELET COUNT, AUTOMATED 387 10^3/uL (150-450); RED CELL DISTRIBUTION WIDTH 18.3 % (11.5-14.5); WHITE BLOOD COUNT 13.7 10^3/uL (4.0-10.0)
[2018-08-30 04:50] LABS: ALBUMIN 2.6 GM/DL (3.2-5.2); ALKALINE PHOSPHATASE 156 U/L (45-117); ALT/SGPT 134 U/L (12-78); ANION GAP 7 MEQ/L (8-16); AST/SGOT 61 U/L (7-37); BILIRUBIN,TOTAL 0.6 MG/DL (0.2-1.0); BLOOD UREA NITROGEN 24 MG/DL (7-18); CALCIUM LEVEL 8.6 MG/DL (8.5-10.1); CARBON DIOXIDE LEVEL 27 MEQ/L (21-32); CHLORIDE LEVEL 104 MEQ/L (98-107); CHOLESTEROL LEVEL 191 MG/DL (< 200); CPK CREATINE PHOSPHOKINASE 35 U/L (26-192); CREATININE FOR GFR 0.68 MG/DL (0.55-1.30); GLOMERULAR FILTRATION RATE > 60.0 (>58); GLUCOSE, FASTING 115 MG/DL (70-100); LDH LACTATE DEHYDROGENASE 316 U/L (84-246); PHOSPHORUS LEVEL 3.6 MG/DL (2.5-4.9); POTASSIUM SERUM 3.5 MEQ/L (3.5-5.1); SODIUM LEVEL 138 MEQ/L (136-145); TOTAL PROTEIN 6.9 GM/DL (6.4-8.2); TRIGLYCERIDES LEVEL 177 MG/DL (<150)
[2018-08-30 05:57] LABS: BEDSIDE GLUCOSE 106 MG/DL (70-105)
[2018-08-30 05:58] LABS: ABG BASE EXCESS 2.8 (-2.0-2.0); ABG O2 SATURATION 94.6 % (95.0-99.0); ABG PARTIAL PRESSURE CO2 31.2 mmHg (35.0-45.0); ABG PARTIAL PRESSURE O2 69.9 mmHg (75.0-100.0); ABG STANDARD HCO3 26.9 MEQ/L (22.0-26.0); ABG pH (ARTERIAL) 7.522 UNITS (7.350-7.450)
[2018-08-30] MEDS: METOCLOPRAMIDE INJ 10MG/2ML VIAL (J2765) IV ×4 (06:11→22:09)
[2018-08-30] MEDS: SODIUM CHLORIDE 0.9% INJ 10 ML SYR IV ×3 (06:11→22:09)
[2018-08-30] MEDS: PANTOPRAZOLE 40MG INJ (PROTONIX) (C9113) IV (08:57)
[2018-08-30] MEDS: ASPIRIN 325 MG TAB NG (08:57)
[2018-08-30] MEDS: CLOPIDOGREL 75 MG TAB NG (08:57)
[2018-08-30 11:07] LABS: BEDSIDE GLUCOSE 146 MG/DL (70-105)
[2018-08-30 17:05] LABS: BEDSIDE GLUCOSE 167 MG/DL (70-105)
[2018-08-30] MEDS: ENOXAPARIN 40 MG/0.4 ML SYRINGE (J1650) SC (21:59)
[2018-08-31 01:15] LABS: BEDSIDE GLUCOSE 149 MG/DL (70-105)
[2018-08-31] MEDS: HumaLOG INSULIN (NovoLOG) PER UNIT SC ×5 (01:26→23:44)
[2018-08-31] MEDS: ALBUTEROL SULFATE 2.5 MG/0.5 ML INH NEB SOLN NEB ×4 (04:04→19:27)
[2018-08-31] MEDS: METOCLOPRAMIDE INJ 10MG/2ML VIAL (J2765) IV ×4 (04:56→22:51)
[2018-08-31] MEDS: SODIUM CHLORIDE 0.9% INJ 10 ML SYR IV ×2 (04:56→14:00)
[2018-08-31 05:15] LABS: HEMATOCRIT 42.1 % (36.0-47.0); HEMOGLOBIN 12.8 g/dl (12.0-15.5); MEAN CORPUSCULAR HEMOGLOBIN 22.5 pg (27.0-33.0); MEAN CORPUSCULAR HGB CONC 30.4 g/dl (32.0-36.5); PLATELET COUNT, AUTOMATED 467 10^3/uL (150-450); RED BLOOD COUNT 5.69 10^6/uL (4.00-5.40); RED CELL DISTRIBUTION WIDTH 18.6 % (11.5-14.5); WHITE BLOOD COUNT 14.3 10^3/uL (4.0-10.0)
[2018-08-31 05:46] LABS: ALBUMIN 2.6 GM/DL (3.2-5.2); ALBUMIN/GLOBULIN RATIO 0.59 (1.00-1.93); ALKALINE PHOSPHATASE 172 U/L (45-117); ALT/SGPT 153 U/L (12-78); ANION GAP 8 MEQ/L (8-16); AST/SGOT 49 U/L (7-37); BILIRUBIN,TOTAL 0.4 MG/DL (0.2-1.0); BLOOD UREA NITROGEN 30 MG/DL (7-18); CALCIUM LEVEL 8.5 MG/DL (8.5-10.1); CARBON DIOXIDE LEVEL 27 MEQ/L (21-32); CHLORIDE LEVEL 106 MEQ/L (98-107); CHOLESTEROL LEVEL 187 MG/DL (< 200); CPK CREATINE PHOSPHOKINASE 32 U/L (26-192); CREATININE FOR GFR 0.73 MG/DL (0.55-1.30); GLOMERULAR FILTRATION RATE > 60.0 (>58); GLUCOSE, FASTING 197 MG/DL (70-100); LDH LACTATE DEHYDROGENASE 261 U/L (84-246); PHOSPHORUS LEVEL 2.8 MG/DL (2.5-4.9); POTASSIUM SERUM 3.5 MEQ/L (3.5-5.1); SODIUM LEVEL 141 MEQ/L (136-145); TRIGLYCERIDES LEVEL 184 MG/DL (<150)
[2018-08-31 05:56] LABS: ABG BASE EXCESS 4.1 (-2.0-2.0); ABG HCO3 26.6 MEQ/L (22.0-26.0); ABG O2 SATURATION 95.8 % (95.0-99.0); ABG PARTIAL PRESSURE O2 72.1 mmHg (75.0-100.0); ABG STANDARD HCO3 28.1 MEQ/L (22.0-26.0); ABG TOTAL CO2 27.6 MEQ/L (22.0-29.0); ABG pH (ARTERIAL) 7.524 UNITS (7.350-7.450)
[2018-08-31] MEDS: PANTOPRAZOLE 40MG INJ (PROTONIX) (C9113) IV (08:34)
[2018-08-31] MEDS: CLOPIDOGREL 75 MG TAB NG (08:35)
[2018-08-31] MEDS: ASPIRIN 325 MG TAB NG (08:35)
[2018-08-31] MEDS: KCL 20MEQ IN D5/0.45NS 1000ML 1,000 ML IV ×2 (12:27→20:58)
[2018-08-31 12:29] LABS: BEDSIDE GLUCOSE 183 MG/DL (70-105)
[2018-08-31 17:45] LABS: BEDSIDE GLUCOSE 112 MG/DL (70-105)
[2018-08-31] MEDS: ENOXAPARIN 40 MG/0.4 ML SYRINGE (J1650) SC (20:58)
[2018-08-31 23:42] LABS: BEDSIDE GLUCOSE 189 MG/DL (70-105)
[2018-09-01] MEDS: ALBUTEROL SULFATE 2.5 MG/0.5 ML INH NEB SOLN NEB ×6 (00:27→21:15)
[2018-09-01] MEDS: METOCLOPRAMIDE INJ 10MG/2ML VIAL (J2765) IV ×4 (04:28→22:36)
[2018-09-01 05:10] LABS: BEDSIDE GLUCOSE 233 MG/DL (70-105)
[2018-09-01] MEDS: HumaLOG INSULIN (NovoLOG) PER UNIT SC ×2 (05:10→12:07)
[2018-09-01 05:14] LABS: HEMATOCRIT 41.2 % (36.0-47.0); HEMOGLOBIN 12.3 g/dl (12.0-15.5); MEAN CORPUSCULAR HEMOGLOBIN 22.3 pg (27.0-33.0); MEAN CORPUSCULAR HGB CONC 29.9 g/dl (32.0-36.5); MEAN CORPUSCULAR VOLUME 74.8 fl (80.0-96.0); PLATELET COUNT, AUTOMATED 456 10^3/uL (150-450); RED BLOOD COUNT 5.51 10^6/uL (4.00-5.40); RED CELL DISTRIBUTION WIDTH 18.5 % (11.5-14.5); WHITE BLOOD COUNT 10.9 10^3/uL (4.0-10.0)
[2018-09-01 05:43] LABS: ALBUMIN 2.6 GM/DL (3.2-5.2); ALBUMIN/GLOBULIN RATIO 0.62 (1.00-1.93); ALKALINE PHOSPHATASE 171 U/L (45-117); ALT/SGPT 112 U/L (12-78); ANION GAP 8 MEQ/L (8-16); AST/SGOT 29 U/L (7-37); BILIRUBIN,TOTAL 0.3 MG/DL (0.2-1.0); BLOOD UREA NITROGEN 25 MG/DL (7-18); CALCIUM LEVEL 8.4 MG/DL (8.5-10.1); CARBON DIOXIDE LEVEL 25 MEQ/L (21-32); CHLORIDE LEVEL 106 MEQ/L (98-107); CHOLESTEROL LEVEL 172 MG/DL (< 200); CPK CREATINE PHOSPHOKINASE 45 U/L (26-192); CREATININE FOR GFR 0.69 MG/DL (0.55-1.30); GLOMERULAR FILTRATION RATE > 60.0 (>58); GLUCOSE, FASTING 221 MG/DL (70-100); LDH LACTATE DEHYDROGENASE 280 U/L (84-246); PHOSPHORUS LEVEL 2.5 MG/DL (2.5-4.9); POTASSIUM SERUM 3.9 MEQ/L (3.5-5.1); SODIUM LEVEL 139 MEQ/L (136-145); TOTAL PROTEIN 6.8 GM/DL (6.4-8.2); TRIGLYCERIDES LEVEL 174 MG/DL (<150)
[2018-09-01] MEDS: KCL 20MEQ IN D5/0.45NS 1000ML 1,000 ML IV ×2 (07:53→17:27)
[2018-09-01] MEDS: CLOPIDOGREL 75 MG TAB NG (08:55)
[2018-09-01] MEDS: ASPIRIN 325 MG TAB NG (08:55)
[2018-09-01] MEDS: PANTOPRAZOLE 40MG INJ (PROTONIX) (C9113) IV (08:55)
[2018-09-01 12:06] LABS: BEDSIDE GLUCOSE 171 MG/DL (70-105)
[2018-09-01] MEDS: ENOXAPARIN 40 MG/0.4 ML SYRINGE (J1650) SC (20:10)
[2018-09-02] MEDS: ALBUTEROL SULFATE 2.5 MG/0.5 ML INH NEB SOLN NEB ×6 (00:34→20:39)
[2018-09-02 03:30] LABS: BEDSIDE GLUCOSE 150 MG/DL (70-105)
[2018-09-02] MEDS: KCL 20MEQ IN D5/0.45NS 1000ML 1,000 ML IV (03:41)
[2018-09-02] MEDS: METOCLOPRAMIDE INJ 10MG/2ML VIAL (J2765) IV ×2 (04:26→11:00)
[2018-09-02 06:37] LABS: HEMATOCRIT 39.9 % (36.0-47.0); HEMOGLOBIN 12.3 g/dl (12.0-15.5); MEAN CORPUSCULAR HGB CONC 30.8 g/dl (32.0-36.5); MEAN CORPUSCULAR VOLUME 74.7 fl (80.0-96.0); PLATELET COUNT, AUTOMATED 463 10^3/uL (150-450); RED BLOOD COUNT 5.34 10^6/uL (4.00-5.40); RED CELL DISTRIBUTION WIDTH 18.3 % (11.5-14.5)
[2018-09-02 07:10] LABS: ALBUMIN 2.6 GM/DL (3.2-5.2); ALKALINE PHOSPHATASE 163 U/L (45-117); ALT/SGPT 86 U/L (12-78); ANION GAP 8 MEQ/L (8-16); AST/SGOT 39 U/L (7-37); BILIRUBIN,TOTAL 0.5 MG/DL (0.2-1.0); BLOOD UREA NITROGEN 14 MG/DL (7-18); CARBON DIOXIDE LEVEL 24 MEQ/L (21-32); CHLORIDE LEVEL 106 MEQ/L (98-107); CHOLESTEROL LEVEL 170 MG/DL (< 200); CPK CREATINE PHOSPHOKINASE 77 U/L (26-192); CREATININE FOR GFR 0.68 MG/DL (0.55-1.30); GLOMERULAR FILTRATION RATE > 60.0 (>58); GLUCOSE, FASTING 168 MG/DL (70-100); LDH LACTATE DEHYDROGENASE 467 U/L (84-246); PHOSPHORUS LEVEL 3.4 MG/DL (2.5-4.9); POTASSIUM SERUM 4.7 MEQ/L (3.5-5.1); SODIUM LEVEL 138 MEQ/L (136-145); TOTAL PROTEIN 6.9 GM/DL (6.4-8.2); TRIGLYCERIDES LEVEL 218 MG/DL (<150)
[2018-09-02] MEDS: PANTOPRAZOLE 40MG INJ (PROTONIX) (C9113) IV (09:08)
[2018-09-02] MEDS: ASPIRIN 325 MG TAB NG (09:08)
[2018-09-02] MEDS: CLOPIDOGREL 75 MG TAB NG (09:08)
[2018-09-02] MEDS ORDERED: PILL CRUSHER/CUTTER 1 EACH XX (09:15)
[2018-09-02 10:50] LABS: HEPATITIS B SURFACE ANTIGEN NEGATIVE (NEGATIVE)
[2018-09-02] MEDS: ENOXAPARIN 40 MG/0.4 ML SYRINGE (J1650) SC (20:26)
[2018-09-03] MEDS: ALBUTEROL SULFATE 2.5 MG/0.5 ML INH NEB SOLN NEB ×7 (00:52→23:26)
[2018-09-03 06:36] LABS: HEMATOCRIT 41.7 % (36.0-47.0); HEMOGLOBIN 12.7 g/dl (12.0-15.5); MEAN CORPUSCULAR HEMOGLOBIN 22.7 pg (27.0-33.0); MEAN CORPUSCULAR HGB CONC 30.5 g/dl (32.0-36.5); MEAN CORPUSCULAR VOLUME 74.5 fl (80.0-96.0); PLATELET COUNT, AUTOMATED 506 10^3/uL (150-450); RED CELL DISTRIBUTION WIDTH 18.6 % (11.5-14.5); WHITE BLOOD COUNT 9.7 10^3/uL (4.0-10.0)
[2018-09-03 07:01] LABS: ALBUMIN 2.9 GM/DL (3.2-5.2); ALBUMIN/GLOBULIN RATIO 0.63 (1.00-1.93); ALKALINE PHOSPHATASE 192 U/L (45-117); ALT/SGPT 83 U/L (12-78); ANION GAP 7 MEQ/L (8-16); AST/SGOT 27 U/L (7-37); BILIRUBIN,TOTAL 0.5 MG/DL (0.2-1.0); BLOOD UREA NITROGEN 19 MG/DL (7-18); CALCIUM LEVEL 9.2 MG/DL (8.5-10.1); CARBON DIOXIDE LEVEL 26 MEQ/L (21-32); CHLORIDE LEVEL 107 MEQ/L (98-107); CHOLESTEROL LEVEL 186 MG/DL (< 200); CPK CREATINE PHOSPHOKINASE 40 U/L (26-192); CREATININE FOR GFR 0.79 MG/DL (0.55-1.30); GLOMERULAR FILTRATION RATE > 60.0 (>58); GLUCOSE, FASTING 137 MG/DL (70-100); LDH LACTATE DEHYDROGENASE 241 U/L (84-246); PHOSPHORUS LEVEL 4.2 MG/DL (2.5-4.9); SODIUM LEVEL 140 MEQ/L (136-145); TOTAL PROTEIN 7.5 GM/DL (6.4-8.2); TRIGLYCERIDES LEVEL 192 MG/DL (<150)
[2018-09-03] MEDS: CLOPIDOGREL 75 MG TAB NG (09:17)
[2018-09-03] MEDS: ASPIRIN 325 MG TAB NG (09:17)
[2018-09-03 11:25] LABS: TOTAL 25(OH) VITAMIN D 22.9 NG/ML (30.0-100.0)
[2018-09-03] MEDS: ENOXAPARIN 40 MG/0.4 ML SYRINGE (J1650) SC (20:09)
[2018-09-04] MEDS: ALBUTEROL SULFATE 2.5 MG/0.5 ML INH NEB SOLN NEB ×4 (04:27→13:48)
[2018-09-04] MEDS: ASPIRIN 325 MG TAB NG (10:25)
[2018-09-04] MEDS: CLOPIDOGREL 75 MG TAB NG (10:25)
== END 2018-09-04 17:00 | DRG 951 ==
LOC: M MSPAV 09-01 13:51 → M ED 06:06 → M ED INP 10:50 → M ICU 11:28
PROC: 0B9M8ZZ Drainage of Bilateral Lungs, Via Natural or Artificial Opening Endoscopic (ICD-10-PCS; principal; 2018-08-23)
PROC: 5A1955Z Respiratory Ventilation, Greater than 96 Consecutive Hours (ICD-10-PCS; 2018-08-23)
PROC: 02HV33Z Insertion of Infusion Device into Superior Vena Cava, Percutaneous Approach (ICD-10-PCS; 2018-08-23)
DX: T40.3X1A Poisoning by methadone, accidental (unintentional), initial encounter (principal); I49.01 Ventricular fibrillation; I21.4 Non-ST elevation (NSTEMI) myocardial infarction; J96.00 Acute respiratory failure, unspecified whether with hypoxia or hypercapnia; J69.0 Pneumonitis due to inhalation of food and vomit; R40.20 Unspecified coma; G93.41 Metabolic encephalopathy; G93.1 Anoxic brain damage, not elsewhere classified; E87.3 Alkalosis; E46 Unspecified protein-calorie malnutrition; E87.5 Hyperkalemia; M54.9 Dorsalgia, unspecified; M25.561 Pain in right knee; M25.562 Pain in left knee; F17.210 Nicotine dependence, cigarettes, uncomplicated; T43.621A Poisoning by amphetamines, accidental (unintentional), initial encounter; R73.9 Hyperglycemia, unspecified; E87.6 Hypokalemia; G47.00 Insomnia, unspecified; Z90.49 Acquired absence of other specified parts of digestive tract; Z79.51 Long term (current) use of inhaled steroids; Z79.899 Other long term (current) drug therapy; Z98.51 Tubal ligation status; Z88.0 Allergy status to penicillin; Z88.6 Allergy status to analgesic agent; Z88.5 Allergy status to narcotic agent; Z68.37 Body mass index [BMI] 37.0-37.9, adult

== ENCOUNTER 2018-09-04 17:10 | Inpatient (IN) | payer OTHER ==
[2018-09-04] MEDS ORDERED: IPRATROPIUM 0.5MG/ALBUTEROL 2.5MG INH SOL UD 3ML (DUONEB)(J7620) NEB (19:15)
[2018-09-04] MEDS ORDERED: traZODone 50 MG TAB PO (19:30)
[2018-09-04] MEDS ORDERED: NITROGLYCERIN 0.3 MG SUBL TAB SL (19:30)
[2018-09-04] MEDS: IPRATROPIUM 0.5MG/ALBUTEROL 2.5MG INH SOL UD 3ML (DUONEB)(J7620) NEB (20:00)
[2018-09-04] MEDS ORDERED: cloNIDine 0.2 MG TAB PO (21:00)
[2018-09-04] MEDS ORDERED: cloNIDine 0.1 MG TAB PO (21:00)
[2018-09-04] MEDS ORDERED: GABAPENTIN 300 MG CAP PO (21:00)
[2018-09-04] MEDS: guaiFENesin ER 600 MG TAB PO (21:19)
[2018-09-04] MEDS: predniSONE 10 MG TAB PO (21:19)
[2018-09-04] MEDS: traZODone 50 MG TAB PO (21:19)
[2018-09-04] MEDS: METOPROLOL TART 12.5 MG PER 1/2 TAB PO (21:19)
[2018-09-04] MEDS: ADVAIR HFA 115/21MCG INHALER INH (21:33)
[2018-09-05] MEDS: IPRATROPIUM 0.5MG/ALBUTEROL 2.5MG INH SOL UD 3ML (DUONEB)(J7620) NEB ×2 (02:00→07:51)
[2018-09-05 02:47] LABS: APPEARANCE, URINE HAZY (CLEAR); BACTERIA, URINE AUTO NEGATIVE (NEGATIVE); BILIRUBIN, URINE AUTO NEGATIVE (NEGATIVE); BLOOD, URINE BLOOD NEGATIVE (NEGATIVE); COLOR, URINE YELLOW (YELLOW); GLUCOSE, URINE (UA) AUTO NEGATIVE (NEGATIVE); KETONE, URINE AUTO NEGATIVE (NEGATIVE); LEUKOCYTE ESTERASE, URINE AUTO NEGATIVE (NEGATIVE); MUCUS, URINE SMALL (NEGATIVE); NITRITE, URINE AUTO NEGATIVE (NEGATIVE); PROTEIN, URINE AUTO NEGATIVE (NEGATIVE); RBC, URINE AUTO 1 /HPF (0-3); SPECIFIC GRAVITY URINE AUTO 1.016 (1.002-1.035); SQUAMOUS EPITHELIAL CELL UR AU 3 /HPF (0-6); UROBILINOGEN, URINE AUTO 0.2 mg/dL (0.0-2.0); WBC, URINE AUTO 2 /HPF (0-3)
[2018-09-05] MEDS: METOPROLOL TART 12.5 MG PER 1/2 TAB PO (06:36)
[2018-09-05 07:34] LABS: BASO % 0.1 % (0.0-1.0); HEMATOCRIT 41.9 % (36.0-47.0); HEMOGLOBIN 12.9 g/dl (12.0-15.5); IMMATURE GRANULOCYTE % 0.5 % (0-3.0); LYMPH # 2.1 10^3/uL (1.5-4.5); LYMPH % 23.9 % (24.0-44.0); MEAN CORPUSCULAR HEMOGLOBIN 22.8 pg (27.0-33.0); MEAN CORPUSCULAR HGB CONC 30.8 g/dl (32.0-36.5); MEAN CORPUSCULAR VOLUME 74.2 fl (80.0-96.0); MONO # 0.4 10^3/uL (0.0-0.8); MONO % 4.5 % (0.0-5.0); NEUTROPHILS # 6.2 10^3/uL (1.8-7.7); PLATELET COUNT, AUTOMATED 483 10^3/uL (150-450); RED BLOOD COUNT 5.65 10^6/uL (4.00-5.40); RED CELL DISTRIBUTION WIDTH 18.6 % (11.5-14.5); WHITE BLOOD COUNT 8.7 10^3/uL (4.0-10.0)
[2018-09-05] MEDS: ADVAIR HFA 115/21MCG INHALER INH (07:51)
[2018-09-05] MEDS ORDERED: TIOTROPIUM INHALER/CAPSULE (SPIRIVA) INH (08:00)
[2018-09-05 08:07] LABS: ALBUMIN/GLOBULIN RATIO 0.67 (1.00-1.93); ALKALINE PHOSPHATASE 234 U/L (45-117); ALT/SGPT 86 U/L (12-78); ANION GAP 9 MEQ/L (8-16); AST/SGOT 35 U/L (7-37); BILIRUBIN,TOTAL 0.5 MG/DL (0.2-1.0); BLOOD UREA NITROGEN 19 MG/DL (7-18); CALCIUM LEVEL 9.3 MG/DL (8.5-10.1); CARBON DIOXIDE LEVEL 25 MEQ/L (21-32); CHLORIDE LEVEL 105 MEQ/L (98-107); CREATININE FOR GFR 0.91 MG/DL (0.55-1.30); GLOMERULAR FILTRATION RATE > 60.0 (>58); GLUCOSE, FASTING 170 MG/DL (70-100); POTASSIUM SERUM 3.8 MEQ/L (3.5-5.1); SODIUM LEVEL 139 MEQ/L (136-145); TOTAL PROTEIN 7.5 GM/DL (6.4-8.2)
[2018-09-05] MEDS ORDERED: VENLAFAXINE **XR** 75MG CAPSULE PO (09:00)
[2018-09-05] MEDS ORDERED: MAXZIDE 75/50 TABLET PO (09:00)
[2018-09-05] MEDS ORDERED: VENLAFAXINE **XR** 37.5 MG CAPSULE PO (09:00)
[2018-09-05] MEDS: guaiFENesin ER 600 MG TAB PO (09:07)
[2018-09-05] MEDS: ASPIRIN 325 MG TAB PO (09:07)
[2018-09-05] MEDS: predniSONE 10 MG TAB PO (09:07)
[2018-09-05] MEDS: CLOPIDOGREL 75 MG TAB PO (09:07)
[2018-09-05] MEDS: NICOTINE 21MG/24HR 1 EA TRANSDERMAL TD (09:08)
[2018-09-05] MEDS: ENOXAPARIN 40 MG/0.4 ML SYRINGE (J1650) SC (09:08)
[2018-09-05 10:23] LABS: BEDSIDE GLUCOSE 214 MG/DL (70-105)
[2018-09-05] MEDS ORDERED: NS 1,000 ML IV (10:30)
[2018-09-05 10:42] LABS: ABG BASE EXCESS 1.1 (-2.0-2.0); ABG O2 SATURATION 97.7 % (95.0-99.0); ABG PARTIAL PRESSURE CO2 25.2 mmHg (35.0-45.0); ABG PARTIAL PRESSURE O2 89.1 mmHg (75.0-100.0); ABG STANDARD HCO3 25.5 MEQ/L (22.0-26.0); ABG TOTAL CO2 22.7 MEQ/L (22.0-29.0); ABG pH (ARTERIAL) 7.558 UNITS (7.350-7.450)
[2018-09-05 10:54] LABS: BASO % 0.2 % (0.0-1.0); HEMATOCRIT 42.4 % (36.0-47.0); HEMOGLOBIN 12.8 g/dl (12.0-15.5); IMMATURE GRANULOCYTE % 0.5 % (0-3.0); LYMPH # 2.9 10^3/uL (1.5-4.5); LYMPH % 26.8 % (24.0-44.0); MEAN CORPUSCULAR HEMOGLOBIN 22.9 pg (27.0-33.0); MEAN CORPUSCULAR HGB CONC 30.2 g/dl (32.0-36.5); MEAN CORPUSCULAR VOLUME 75.7 fl (80.0-96.0); MONO # 0.6 10^3/uL (0.0-0.8); NEUTROPHILS # 7.1 10^3/uL (1.8-7.7); NEUTROPHILS % 66.5 % (36.0-66.0); PLATELET COUNT, AUTOMATED 559 10^3/uL (150-450); RED CELL DISTRIBUTION WIDTH 18.1 % (11.5-14.5); WHITE BLOOD COUNT 10.6 10^3/uL (4.0-10.0)
[2018-09-05 11:16] LABS: ALBUMIN 3.2 GM/DL (3.2-5.2); ALBUMIN/GLOBULIN RATIO 0.84 (1.00-1.93); ALKALINE PHOSPHATASE 230 U/L (45-117); ALT/SGPT 86 U/L (12-78); ANION GAP 10 MEQ/L (8-16); AST/SGOT 32 U/L (7-37); BILIRUBIN,TOTAL 0.4 MG/DL (0.2-1.0); BLOOD UREA NITROGEN 19 MG/DL (7-18); CALCIUM LEVEL 9.6 MG/DL (8.5-10.1); CARBON DIOXIDE LEVEL 27 MEQ/L (21-32); CHLORIDE LEVEL 102 MEQ/L (98-107); CPK CREATINE PHOSPHOKINASE 47 U/L (26-192); CREATININE FOR GFR 0.98 MG/DL (0.55-1.30); GLOMERULAR FILTRATION RATE > 60.0 (>58); GLUCOSE, FASTING 212 MG/DL (70-100); MAGNESIUM LEVEL 2.3 MG/DL (1.8-2.4); MB/CK RELATIVE INDEX 14.04 (< OR =4); POTASSIUM SERUM 4.3 MEQ/L (3.5-5.1); SODIUM LEVEL 139 MEQ/L (136-145)
[2018-09-05 11:22] LABS: LACTIC ACID SEPSIS PROTOCOL 3.4 MMOL/L (0.4-2.0)
[2018-09-07] MEDS ORDERED: predniSONE 5 MG TAB PO (09:00)
[2018-09-07 10:24] LABS: PROLACTIN 8.6 NG/ML
[2018-09-10] MEDS ORDERED: predniSONE 5 MG TAB PO (09:00)
== END 2018-09-05 11:00 | disposition short-term general hospital (02) | DRG 861 ==
LOC: M ICU 09-05 10:56 → M PM&R 17:10 → M ICU 09-09 08:28 → M PM&R 09-05 10:57
DX: R53.81 Other malaise (principal); I21.4 Non-ST elevation (NSTEMI) myocardial infarction; Z86.74 Personal history of sudden cardiac arrest; E46 Unspecified protein-calorie malnutrition; G40.409 Other generalized epilepsy and epileptic syndromes, not intractable, without status epilepticus; I10 Essential (primary) hypertension; J45.909 Unspecified asthma, uncomplicated; K21.9 Gastro-esophageal reflux disease without esophagitis; Z88.0 Allergy status to penicillin; Z88.6 Allergy status to analgesic agent; Z88.5 Allergy status to narcotic agent; Z90.49 Acquired absence of other specified parts of digestive tract; Z98.51 Tubal ligation status; Z79.899 Other long term (current) drug therapy

== ENCOUNTER 2018-09-05 12:13 | Inpatient (IN) | payer OTHER ==
[~2018-09-05 12:13] MED LIST changes: -AMBI10TA PO; -FOLI1TAB4 PO; -LORA2TAB9 PO; -MULTCAP PO; +NITROGLYCERIN 0.3 MG SUBL TAB SL; +NS 1,000 ML IV; -ROBA500T PO; -TRAM50TA2 PO; -VIST50CA PO; -VITA100T60 PO; -atarax PO; +levETIRAcetam INJection 1,000 MG in D5W 100 ML IV
[2018-09-05 12:54] LABS: TROPONIN I 0.06 NG/ML (< 0.10)
[2018-09-05] MEDS: levETIRAcetam 250MG TABLET (KEPPRA) PO ×2 (13:14→20:23)
[2018-09-05] MEDS: PANTOPRAZOLE 40MG TAB (PROTONIX) PO (13:14)
[2018-09-05] MEDS: METOPROLOL TART 12.5 MG PER 1/2 TAB PO ×2 (13:14→20:22)
[2018-09-05] MEDS: predniSONE 5 MG TAB PO (20:23)
[2018-09-05] MEDS: ADVAIR HFA 115/21MCG INHALER INH (21:05)
[2018-09-06] MEDS: METOPROLOL TART 12.5 MG PER 1/2 TAB PO ×3 (05:09→21:34)
[2018-09-06 05:38] LABS: BASO % 0.1 % (0.0-1.0); HEMATOCRIT 40.5 % (36.0-47.0); HEMOGLOBIN 12.4 g/dl (12.0-15.5); IMMATURE GRANULOCYTE % 0.4 % (0-3.0); LYMPH # 2.3 10^3/uL (1.5-4.5); LYMPH % 29.2 % (24.0-44.0); MEAN CORPUSCULAR HEMOGLOBIN 22.6 pg (27.0-33.0); MEAN CORPUSCULAR HGB CONC 30.6 g/dl (32.0-36.5); MEAN CORPUSCULAR VOLUME 73.9 fl (80.0-96.0); MONO # 0.4 10^3/uL (0.0-0.8); MONO % 5.3 % (0.0-5.0); NEUTROPHILS # 5.1 10^3/uL (1.8-7.7); RED BLOOD COUNT 5.48 10^6/uL (4.00-5.40); RED CELL DISTRIBUTION WIDTH 18.5 % (11.5-14.5); WHITE BLOOD COUNT 7.9 10^3/uL (4.0-10.0)
[2018-09-06 05:43] LABS: PLATELET COUNT, AUTOMATED 428 10^3/uL (150-450)
[2018-09-06 06:09] LABS: ALBUMIN 2.9 GM/DL (3.2-5.2); ALBUMIN/GLOBULIN RATIO 0.85 (1.00-1.93); ALKALINE PHOSPHATASE 211 U/L (45-117); ALT/SGPT 73 U/L (12-78); ANION GAP 9 MEQ/L (8-16); AST/SGOT 26 U/L (7-37); BILIRUBIN,TOTAL 0.4 MG/DL (0.2-1.0); BLOOD UREA NITROGEN 21 MG/DL (7-18); CALCIUM LEVEL 8.9 MG/DL (8.5-10.1); CARBON DIOXIDE LEVEL 25 MEQ/L (21-32); CHLORIDE LEVEL 107 MEQ/L (98-107); GLOMERULAR FILTRATION RATE > 60.0 (>58); GLUCOSE, FASTING 127 MG/DL (70-100); POTASSIUM SERUM 4.3 MEQ/L (3.5-5.1); SODIUM LEVEL 141 MEQ/L (136-145); TOTAL PROTEIN 6.3 GM/DL (6.4-8.2); TROPONIN I 0.06 NG/ML (< 0.10)
[2018-09-06] MEDS: ADVAIR HFA 115/21MCG INHALER INH ×2 (07:29→20:32)
[2018-09-06] MEDS: TIOTROPIUM INHALER/CAPSULE (SPIRIVA) INH (07:29)
[2018-09-06] MEDS ORDERED: PANTOPRAZOLE 40MG INJ (PROTONIX) (C9113) IV (09:00)
[2018-09-06] MEDS: NICOTINE 14 MG/24 HR TRANSDERMAL TD (09:08)
[2018-09-06] MEDS: predniSONE 5 MG TAB PO ×2 (09:09→21:33)
[2018-09-06] MEDS: ASPIRIN 325 MG TAB PO (09:09)
[2018-09-06] MEDS: PANTOPRAZOLE 40MG TAB (PROTONIX) PO (09:09)
[2018-09-06] MEDS: levETIRAcetam 250MG TABLET (KEPPRA) PO ×2 (09:09→21:34)
[2018-09-06] MEDS: CLOPIDOGREL 75 MG TAB PO (09:10)
[2018-09-06] MEDS: ENOXAPARIN 40 MG/0.4 ML SYRINGE (J1650) SC (09:10)
[2018-09-06] MEDS: LEVALBUTEROL 1.25 MG/0.5 ML CONCENTRATE NEB INH (13:51)
[2018-09-07] MEDS: METOPROLOL TART 12.5 MG PER 1/2 TAB PO ×3 (05:38→20:57)
[2018-09-07 06:38] LABS: BASO % 0.1 % (0.0-1.0); EOS % 0.1 % (0.0-3.0); HEMATOCRIT 39.6 % (36.0-47.0); HEMOGLOBIN 12.2 g/dl (12.0-15.5); IMMATURE GRANULOCYTE % 0.4 % (0-3.0); LYMPH # 2.4 10^3/uL (1.5-4.5); LYMPH % 35.1 % (24.0-44.0); MEAN CORPUSCULAR HEMOGLOBIN 23.1 pg (27.0-33.0); MEAN CORPUSCULAR HGB CONC 30.8 g/dl (32.0-36.5); MEAN CORPUSCULAR VOLUME 74.9 fl (80.0-96.0); MONO # 0.4 10^3/uL (0.0-0.8); MONO % 5.9 % (0.0-5.0); NEUTROPHILS % 58.4 % (36.0-66.0); PLATELET COUNT, AUTOMATED 427 10^3/uL (150-450); RED BLOOD COUNT 5.29 10^6/uL (4.00-5.40); RED CELL DISTRIBUTION WIDTH 17.9 % (11.5-14.5); WHITE BLOOD COUNT 6.8 10^3/uL (4.0-10.0)
[2018-09-07 07:00] LABS: ALBUMIN 2.9 GM/DL (3.2-5.2); ALBUMIN/GLOBULIN RATIO 0.74 (1.00-1.93); ALKALINE PHOSPHATASE 211 U/L (45-117); ALT/SGPT 82 U/L (12-78); ANION GAP 10 MEQ/L (8-16); AST/SGOT 33 U/L (7-37); BILIRUBIN,TOTAL 0.3 MG/DL (0.2-1.0); BLOOD UREA NITROGEN 19 MG/DL (7-18); CALCIUM LEVEL 9.1 MG/DL (8.5-10.1); CARBON DIOXIDE LEVEL 24 MEQ/L (21-32); CHLORIDE LEVEL 108 MEQ/L (98-107); CREATININE FOR GFR 0.81 MG/DL (0.55-1.30); GLOMERULAR FILTRATION RATE > 60.0 (>58); GLUCOSE, FASTING 112 MG/DL (70-100); POTASSIUM SERUM 3.8 MEQ/L (3.5-5.1); SODIUM LEVEL 142 MEQ/L (136-145); TOTAL PROTEIN 6.8 GM/DL (6.4-8.2)
[2018-09-07] MEDS: ADVAIR HFA 115/21MCG INHALER INH ×2 (07:49→20:42)
[2018-09-07] MEDS: TIOTROPIUM INHALER/CAPSULE (SPIRIVA) INH (07:49)
[2018-09-07] MEDS: PANTOPRAZOLE 40MG TAB (PROTONIX) PO (07:57)
[2018-09-07] MEDS: predniSONE 5 MG TAB PO ×2 (07:57→20:57)
[2018-09-07] MEDS: ASPIRIN 325 MG TAB PO (07:57)
[2018-09-07] MEDS: levETIRAcetam 250MG TABLET (KEPPRA) PO ×2 (07:57→20:56)
[2018-09-07] MEDS: CLOPIDOGREL 75 MG TAB PO (07:57)
[2018-09-07] MEDS: ENOXAPARIN 40 MG/0.4 ML SYRINGE (J1650) SC (07:58)
[2018-09-07] MEDS: NICOTINE 14 MG/24 HR TRANSDERMAL TD (07:58)
[2018-09-08] MEDS: TIOTROPIUM INHALER/CAPSULE (SPIRIVA) INH (07:43)
[2018-09-08] MEDS: ADVAIR HFA 115/21MCG INHALER INH ×2 (07:43→21:03)
[2018-09-08] MEDS: ASPIRIN 325 MG TAB PO (08:37)
[2018-09-08] MEDS: CLOPIDOGREL 75 MG TAB PO (08:37)
[2018-09-08] MEDS: PANTOPRAZOLE 40MG TAB (PROTONIX) PO (08:37)
[2018-09-08] MEDS: levETIRAcetam 250MG TABLET (KEPPRA) PO ×2 (08:37→21:44)
[2018-09-08] MEDS: predniSONE 5 MG TAB PO ×2 (08:37→21:44)
[2018-09-08] MEDS: METOPROLOL SUCC *XL* 25MG TAB (TopROL *XL*) PO (08:37)
[2018-09-08] MEDS: ENOXAPARIN 40 MG/0.4 ML SYRINGE (J1650) SC (08:38)
[2018-09-08] MEDS: NICOTINE 14 MG/24 HR TRANSDERMAL TD (08:38)
[2018-09-08 12:40] LABS: ALBUMIN 3.2 GM/DL (3.2-5.2); ALBUMIN/GLOBULIN RATIO 0.82 (1.00-1.93); ALKALINE PHOSPHATASE 210 U/L (45-117); ALT/SGPT 94 U/L (12-78); ANION GAP 8 MEQ/L (8-16); AST/SGOT 40 U/L (7-37); BILIRUBIN,TOTAL 0.3 MG/DL (0.2-1.0); BLOOD UREA NITROGEN 20 MG/DL (7-18); CALCIUM LEVEL 9.6 MG/DL (8.5-10.1); CARBON DIOXIDE LEVEL 23 MEQ/L (21-32); CHLORIDE LEVEL 107 MEQ/L (98-107); CREATININE FOR GFR 0.75 MG/DL (0.55-1.30); GLOMERULAR FILTRATION RATE > 60.0 (>58); GLUCOSE, FASTING 99 MG/DL (70-100); POTASSIUM SERUM 4.4 MEQ/L (3.5-5.1); SODIUM LEVEL 138 MEQ/L (136-145); TOTAL PROTEIN 7.1 GM/DL (6.4-8.2)
[2018-09-08 14:05] LABS: HEMATOCRIT 41.5 % (36.0-47.0); HEMOGLOBIN 12.9 g/dl (12.0-15.5); MEAN CORPUSCULAR HEMOGLOBIN 23.3 pg (27.0-33.0); MEAN CORPUSCULAR HGB CONC 31.1 g/dl (32.0-36.5); MEAN CORPUSCULAR VOLUME 74.9 fl (80.0-96.0); PLATELET COUNT, AUTOMATED 473 10^3/uL (150-450); RED BLOOD COUNT 5.54 10^6/uL (4.00-5.40); RED CELL DISTRIBUTION WIDTH 17.9 % (11.5-14.5); WHITE BLOOD COUNT 9.5 10^3/uL (4.0-10.0)
[2018-09-09 07:37] LABS: BASO % 0.1 % (0.0-1.0); HEMATOCRIT 42.1 % (36.0-47.0); IMMATURE GRANULOCYTE % 0.6 % (0-3.0); LYMPH % 28.3 % (24.0-44.0); MEAN CORPUSCULAR HEMOGLOBIN 23.4 pg (27.0-33.0); MEAN CORPUSCULAR HGB CONC 30.9 g/dl (32.0-36.5); MEAN CORPUSCULAR VOLUME 75.9 fl (80.0-96.0); MONO # 0.4 10^3/uL (0.0-0.8); MONO % 5.8 % (0.0-5.0); NEUTROPHILS # 4.7 10^3/uL (1.8-7.7); NEUTROPHILS % 65.2 % (36.0-66.0); PLATELET COUNT, AUTOMATED 383 10^3/uL (150-450); RED BLOOD COUNT 5.55 10^6/uL (4.00-5.40); RED CELL DISTRIBUTION WIDTH 17.7 % (11.5-14.5); WHITE BLOOD COUNT 7.2 10^3/uL (4.0-10.0)
[2018-09-09 08:01] LABS: ALBUMIN 3.1 GM/DL (3.2-5.2); ALBUMIN/GLOBULIN RATIO 0.78 (1.00-1.93); ALKALINE PHOSPHATASE 218 U/L (45-117); ALT/SGPT 101 U/L (12-78); ANION GAP 10 MEQ/L (8-16); AST/SGOT 33 U/L (7-37); BILIRUBIN,TOTAL 0.4 MG/DL (0.2-1.0); BLOOD UREA NITROGEN 19 MG/DL (7-18); CALCIUM LEVEL 9.1 MG/DL (8.5-10.1); CARBON DIOXIDE LEVEL 23 MEQ/L (21-32); CHLORIDE LEVEL 107 MEQ/L (98-107); CREATININE FOR GFR 0.89 MG/DL (0.55-1.30); GLOMERULAR FILTRATION RATE > 60.0 (>58); GLUCOSE, FASTING 148 MG/DL (70-100); POTASSIUM SERUM 3.9 MEQ/L (3.5-5.1); SODIUM LEVEL 140 MEQ/L (136-145); TOTAL PROTEIN 7.1 GM/DL (6.4-8.2)
[2018-09-09] MEDS: TIOTROPIUM INHALER/CAPSULE (SPIRIVA) INH (08:01)
[2018-09-09] MEDS: ADVAIR HFA 115/21MCG INHALER INH (08:02)
[2018-09-09] MEDS: NICOTINE 14 MG/24 HR TRANSDERMAL TD (08:45)
[2018-09-09] MEDS: levETIRAcetam 250MG TABLET (KEPPRA) PO (08:45)
[2018-09-09] MEDS: ENOXAPARIN 40 MG/0.4 ML SYRINGE (J1650) SC (08:48)
[2018-09-09] MEDS: METOPROLOL SUCC *XL* 25MG TAB (TopROL *XL*) PO (08:48)
[2018-09-09] MEDS: predniSONE 5 MG TAB PO (08:48)
[2018-09-09] MEDS: PANTOPRAZOLE 40MG TAB (PROTONIX) PO (08:48)
[2018-09-09] MEDS: CLOPIDOGREL 75 MG TAB PO (08:48)
[2018-09-09] MEDS: ASPIRIN 325 MG TAB PO (08:49)
== END 2018-09-09 15:38 | DRG 53 ==
LOC: M MSPAV 09-06 14:00 → M ICU 12:13
PROVIDERS: Family Medicine
DX: G40.409 Other generalized epilepsy and epileptic syndromes, not intractable, without status epilepticus (principal); I21.4 Non-ST elevation (NSTEMI) myocardial infarction; I42.9 Cardiomyopathy, unspecified; Z86.74 Personal history of sudden cardiac arrest; R13.12 Dysphagia, oropharyngeal phase; J44.1 Chronic obstructive pulmonary disease with (acute) exacerbation; G90.8 Other disorders of autonomic nervous system; I10 Essential (primary) hypertension; J98.11 Atelectasis; G89.4 Chronic pain syndrome; F32.9 Major depressive disorder, single episode, unspecified; E86.1 Hypovolemia; R00.0 Tachycardia, unspecified; I34.0 Nonrheumatic mitral (valve) insufficiency; K21.9 Gastro-esophageal reflux disease without esophagitis; Z90.49 Acquired absence of other specified parts of digestive tract; Z98.51 Tubal ligation status; Z79.82 Long term (current) use of aspirin; Z79.899 Other long term (current) drug therapy; Z88.0 Allergy status to penicillin; Z88.5 Allergy status to narcotic agent; Z88.6 Allergy status to analgesic agent; Z72.0 Tobacco use

== ENCOUNTER 2018-09-09 15:40 | Inpatient (IN) | payer OTHER ==
[2018-09-09] MEDS ORDERED: LORazepam 2 MG/ML VIAL (J2060) IM (18:00)
[2018-09-09] MEDS ORDERED: LEVALBUTEROL 1.25 MG/0.5 ML CONCENTRATE NEB INH (18:00)
[2018-09-09] MEDS ORDERED: PILL CRUSHER/CUTTER 1 EACH XX (18:15)
[2018-09-09] MEDS: ADVAIR HFA 115/21MCG INHALER INH (20:07)
[2018-09-09] MEDS: traZODone 25MG PER 1/2 TABLET PO (20:47)
[2018-09-09] MEDS: predniSONE 5 MG TAB PO (20:47)
[2018-09-09] MEDS: guaiFENesin 200 MG TAB PO (20:47)
[2018-09-09] MEDS: levETIRAcetam 250MG TABLET (KEPPRA) PO (20:47)
[2018-09-09] MEDS: CHLORHEXIDINE ORAL RINSE 0.12%/15ML 120ML BOTTLE SSP (20:47)
[2018-09-09] MEDS: PROPRANOLOL 10 MG TAB PO (20:49)
[2018-09-10 07:40] LABS: BASO % 0.1 % (0.0-1.0); HEMATOCRIT 43.3 % (36.0-47.0); HEMOGLOBIN 13.3 g/dl (12.0-15.5); IMMATURE GRANULOCYTE % 0.4 % (0-3.0); LYMPH # 2.3 10^3/uL (1.5-4.5); LYMPH % 32.2 % (24.0-44.0); MEAN CORPUSCULAR HEMOGLOBIN 23.3 pg (27.0-33.0); MEAN CORPUSCULAR HGB CONC 30.7 g/dl (32.0-36.5); MEAN CORPUSCULAR VOLUME 75.7 fl (80.0-96.0); MONO # 0.4 10^3/uL (0.0-0.8); NEUTROPHILS # 4.5 10^3/uL (1.8-7.7); NEUTROPHILS % 62.3 % (36.0-66.0); PLATELET COUNT, AUTOMATED 344 10^3/uL (150-450); RED BLOOD COUNT 5.72 10^6/uL (4.00-5.40); RED CELL DISTRIBUTION WIDTH 18.1 % (11.5-14.5); WHITE BLOOD COUNT 7.3 10^3/uL (4.0-10.0)
[2018-09-10 08:25] LABS: ALBUMIN/GLOBULIN RATIO 0.71 (1.00-1.93); ALKALINE PHOSPHATASE 207 U/L (45-117); ALT/SGPT 110 U/L (12-78); ANION GAP 11 MEQ/L (8-16); AST/SGOT 39 U/L (7-37); BILIRUBIN,TOTAL 0.4 MG/DL (0.2-1.0); BLOOD UREA NITROGEN 24 MG/DL (7-18); CALCIUM LEVEL 9.2 MG/DL (8.5-10.1); CARBON DIOXIDE LEVEL 18 MEQ/L (21-32); CHLORIDE LEVEL 109 MEQ/L (98-107); GLOMERULAR FILTRATION RATE > 60.0 (>58); GLUCOSE, FASTING 117 MG/DL (70-100); POTASSIUM SERUM 4.4 MEQ/L (3.5-5.1); SODIUM LEVEL 138 MEQ/L (136-145); TOTAL PROTEIN 7.2 GM/DL (6.4-8.2)
[2018-09-10] MEDS: ADVAIR HFA 115/21MCG INHALER INH ×2 (08:33→21:00)
[2018-09-10] MEDS: TIOTROPIUM INHALER/CAPSULE (SPIRIVA) INH (08:33)
[2018-09-10] MEDS: METOPROLOL SUCC *XL* 25MG TAB (TopROL *XL*) PO (09:12)
[2018-09-10] MEDS: ASPIRIN 325 MG TAB PO (09:12)
[2018-09-10] MEDS: guaiFENesin 200 MG TAB PO ×3 (09:12→21:16)
[2018-09-10] MEDS: levETIRAcetam 250MG TABLET (KEPPRA) PO ×2 (09:13→21:16)
[2018-09-10] MEDS: PANTOPRAZOLE 40MG TAB (PROTONIX) PO (09:13)
[2018-09-10] MEDS: predniSONE 5 MG TAB PO ×2 (09:13→21:16)
[2018-09-10] MEDS: CLOPIDOGREL 75 MG TAB PO (09:13)
[2018-09-10] MEDS: NICOTINE 14 MG/24 HR TRANSDERMAL TD (09:14)
[2018-09-10] MEDS: CHLORHEXIDINE ORAL RINSE 0.12%/15ML 120ML BOTTLE SSP ×3 (09:14→21:17)
[2018-09-10] MEDS: PROPRANOLOL 10 MG TAB PO ×3 (11:03→21:00)
[2018-09-10] MEDS: ENOXAPARIN 40 MG/0.4 ML SYRINGE (J1650) SC (13:46)
[2018-09-10 14:12] LABS: CALCIUM OXALATE CRYSTALS RFX SMALL; KETONE, URINE AUTO RFX NEGATIVE (NEGATIVE); MUCUS, URINE RFX SMALL (NEGATIVE); NITRITE, URINE AUTO RFX NEGATIVE (NEGATIVE); RBC, URINE AUTO RFX 3 /HPF (0-3); SPECIFIC GRAVITY UR AUTO RFX 1.031 (1.002-1.035); SQUAM EPITHELIAL CELL UR AURFX 5 /HPF (0-6)
[2018-09-10 14:21] LABS: LEUKOCYTE ESTERASE UR AUTO RFX TRACE (NEGATIVE); WBC, URINE AUTO RFX 16 /HPF (0-3)
[2018-09-10] MEDS: traZODone 25MG PER 1/2 TABLET PO (15:52)
[2018-09-10] MEDS ORDERED: QUEtiapine FUMARATE 25 MG TAB PO ×2 (16:15→21:00)
[2018-09-10] MEDS: QUEtiapine FUMARATE 50 MG TAB PO (16:18)
[2018-09-10] MEDS: NS 1,000 ML IV (17:45)
[2018-09-11] MEDS: ENOXAPARIN 40 MG/0.4 ML SYRINGE (J1650) SC (08:48)
[2018-09-11] MEDS: CLOPIDOGREL 75 MG TAB PO (08:49)
[2018-09-11] MEDS: PANTOPRAZOLE 40MG TAB (PROTONIX) PO (08:49)
[2018-09-11] MEDS: METOPROLOL SUCC *XL* 25MG TAB (TopROL *XL*) PO (08:49)
[2018-09-11] MEDS: levETIRAcetam 250MG TABLET (KEPPRA) PO ×2 (08:49→21:05)
[2018-09-11] MEDS: ASPIRIN 325 MG TAB PO (08:50)
[2018-09-11] MEDS: guaiFENesin 200 MG TAB PO ×3 (08:50→21:04)
[2018-09-11] MEDS: predniSONE 5 MG TAB PO ×2 (08:50→21:05)
[2018-09-11] MEDS: PROPRANOLOL 10 MG TAB PO ×3 (08:55→21:05)
[2018-09-11] MEDS: ADVAIR HFA 115/21MCG INHALER INH ×2 (08:57→20:00)
[2018-09-11] MEDS: TIOTROPIUM INHALER/CAPSULE (SPIRIVA) INH (08:57)
[2018-09-11] MEDS: CHLORHEXIDINE ORAL RINSE 0.12%/15ML 120ML BOTTLE SSP ×3 (09:00→21:06)
[2018-09-11] MEDS: NICOTINE 14 MG/24 HR TRANSDERMAL TD (09:00)
[2018-09-11 15:31] LABS: BASO % 0.1 % (0.0-1.0); HEMATOCRIT 40.1 % (36.0-47.0); HEMOGLOBIN 12.7 g/dl (12.0-15.5); IMMATURE GRANULOCYTE % 0.3 % (0-3.0); LYMPH # 2.6 10^3/uL (1.5-4.5); LYMPH % 34.1 % (24.0-44.0); MEAN CORPUSCULAR HGB CONC 31.7 g/dl (32.0-36.5); MEAN CORPUSCULAR VOLUME 72.8 fl (80.0-96.0); MONO # 0.4 10^3/uL (0.0-0.8); NEUTROPHILS # 4.6 10^3/uL (1.8-7.7); NEUTROPHILS % 60.5 % (36.0-66.0); PLATELET COUNT, AUTOMATED 328 10^3/uL (150-450); RED BLOOD COUNT 5.51 10^6/uL (4.00-5.40); WHITE BLOOD COUNT 7.5 10^3/uL (4.0-10.0)
[2018-09-11 15:54] LABS: ANION GAP 12 MEQ/L (8-16); BLOOD UREA NITROGEN 20 MG/DL (7-18); CARBON DIOXIDE LEVEL 22 MEQ/L (21-32); CHLORIDE LEVEL 110 MEQ/L (98-107); CREATININE FOR GFR 0.82 MG/DL (0.55-1.30); GLOMERULAR FILTRATION RATE > 60.0 (>58); GLUCOSE, FASTING 134 MG/DL (70-100); POTASSIUM SERUM 3.7 MEQ/L (3.5-5.1); SODIUM LEVEL 144 MEQ/L (136-145)
[2018-09-12] MEDS: ADVAIR HFA 115/21MCG INHALER INH ×2 (07:26→20:47)
[2018-09-12] MEDS: TIOTROPIUM INHALER/CAPSULE (SPIRIVA) INH (07:26)
[2018-09-12] MEDS: PANTOPRAZOLE 40MG TAB (PROTONIX) PO (09:39)
[2018-09-12] MEDS: NICOTINE 14 MG/24 HR TRANSDERMAL TD (09:39)
[2018-09-12] MEDS: ENOXAPARIN 40 MG/0.4 ML SYRINGE (J1650) SC (09:39)
[2018-09-12] MEDS: PROPRANOLOL 10 MG TAB PO ×3 (09:40→20:15)
[2018-09-12] MEDS: ASPIRIN 325 MG TAB PO (09:40)
[2018-09-12] MEDS: predniSONE 5 MG TAB PO ×2 (09:40→20:14)
[2018-09-12] MEDS: CLOPIDOGREL 75 MG TAB PO (09:40)
[2018-09-12] MEDS: METOPROLOL SUCC *XL* 25MG TAB (TopROL *XL*) PO (09:41)
[2018-09-12] MEDS: levETIRAcetam 250MG TABLET (KEPPRA) PO ×2 (09:41→20:14)
[2018-09-12] MEDS: guaiFENesin 200 MG TAB PO ×3 (09:41→20:14)
[2018-09-12] MEDS: CHLORHEXIDINE ORAL RINSE 0.12%/15ML 120ML BOTTLE SSP ×3 (09:42→20:15)
[2018-09-12] MEDS: LORazepam 2 MG/ML VIAL (J2060) IM (11:42)
[2018-09-13] MEDS: TIOTROPIUM INHALER/CAPSULE (SPIRIVA) INH (07:31)
[2018-09-13] MEDS: ADVAIR HFA 115/21MCG INHALER INH ×2 (07:32→20:45)
[2018-09-13] MEDS: NICOTINE 14 MG/24 HR TRANSDERMAL TD (08:52)
[2018-09-13] MEDS: ASPIRIN 325 MG TAB PO (08:53)
[2018-09-13] MEDS: ENOXAPARIN 40 MG/0.4 ML SYRINGE (J1650) SC (08:53)
[2018-09-13] MEDS: PANTOPRAZOLE 40MG TAB (PROTONIX) PO (08:53)
[2018-09-13] MEDS: predniSONE 5 MG TAB PO ×2 (08:53→20:25)
[2018-09-13] MEDS: guaiFENesin 200 MG TAB PO ×3 (08:53→20:25)
[2018-09-13] MEDS: CLOPIDOGREL 75 MG TAB PO (08:53)
[2018-09-13] MEDS: levETIRAcetam 250MG TABLET (KEPPRA) PO ×2 (08:53→20:26)
[2018-09-13] MEDS: METOPROLOL SUCC *XL* 25MG TAB (TopROL *XL*) PO (08:54)
[2018-09-13] MEDS: CHLORHEXIDINE ORAL RINSE 0.12%/15ML 120ML BOTTLE SSP ×3 (08:55→20:25)
[2018-09-13] MEDS: PROPRANOLOL 10 MG TAB PO ×3 (10:07→20:26)
[2018-09-14] MEDS: NICOTINE 14 MG/24 HR TRANSDERMAL TD (08:25)
[2018-09-14] MEDS: predniSONE 5 MG TAB PO ×2 (08:25→20:23)
[2018-09-14] MEDS: guaiFENesin 200 MG TAB PO ×3 (08:25→20:23)
[2018-09-14] MEDS: levETIRAcetam 250MG TABLET (KEPPRA) PO ×2 (08:26→20:23)
[2018-09-14] MEDS: CLOPIDOGREL 75 MG TAB PO (08:26)
[2018-09-14] MEDS: ASPIRIN 325 MG TAB PO (08:26)
[2018-09-14] MEDS: PANTOPRAZOLE 40MG TAB (PROTONIX) PO (08:26)
[2018-09-14] MEDS: METOPROLOL SUCC *XL* 25MG TAB (TopROL *XL*) PO (08:26)
[2018-09-14] MEDS: CHLORHEXIDINE ORAL RINSE 0.12%/15ML 120ML BOTTLE SSP ×3 (08:27→20:23)
[2018-09-14] MEDS: ENOXAPARIN 40 MG/0.4 ML SYRINGE (J1650) SC (08:27)
[2018-09-14] MEDS: ADVAIR HFA 115/21MCG INHALER INH ×2 (08:48→20:45)
[2018-09-14] MEDS: TIOTROPIUM INHALER/CAPSULE (SPIRIVA) INH (08:48)
[2018-09-14] MEDS: PROPRANOLOL 10 MG TAB PO ×3 (10:10→20:21)
[2018-09-15] MEDS: ADVAIR HFA 115/21MCG INHALER INH ×2 (07:57→20:30)
[2018-09-15] MEDS: TIOTROPIUM INHALER/CAPSULE (SPIRIVA) INH (07:57)
[2018-09-15] MEDS: NICOTINE 14 MG/24 HR TRANSDERMAL TD (09:00)
[2018-09-15] MEDS: CHLORHEXIDINE ORAL RINSE 0.12%/15ML 120ML BOTTLE SSP ×3 (09:47→20:20)
[2018-09-15] MEDS: predniSONE 5 MG TAB PO ×2 (09:47→20:20)
[2018-09-15] MEDS: guaiFENesin 200 MG TAB PO ×3 (09:47→20:20)
[2018-09-15] MEDS: ENOXAPARIN 40 MG/0.4 ML SYRINGE (J1650) SC (09:47)
[2018-09-15] MEDS: ASPIRIN 325 MG TAB PO (09:47)
[2018-09-15] MEDS: PANTOPRAZOLE 40MG TAB (PROTONIX) PO (09:47)
[2018-09-15] MEDS: CLOPIDOGREL 75 MG TAB PO (09:47)
[2018-09-15] MEDS: METOPROLOL SUCC *XL* 25MG TAB (TopROL *XL*) PO (09:48)
[2018-09-15] MEDS: levETIRAcetam 250MG TABLET (KEPPRA) PO ×2 (09:48→20:20)
[2018-09-15] MEDS: PROPRANOLOL 10 MG TAB PO ×3 (12:11→20:21)
[2018-09-15] MEDS ORDERED: VARIBAR PUDDING 40% w/v 230ML TUBE As Ordered (12:16)
[2018-09-15] MEDS ORDERED: VARIBAR NECTAR 40% w/v 240ML SUSP BTL As Ordered (12:16)
[2018-09-15] MEDS ORDERED: E-Z-PAQUE 96% w/w SUSP 176GM BTL As Ordered (12:17)
[2018-09-16] MEDS: ADVAIR HFA 115/21MCG INHALER INH ×2 (09:00→20:24)
[2018-09-16] MEDS: NICOTINE 14 MG/24 HR TRANSDERMAL TD (09:31)
[2018-09-16] MEDS: guaiFENesin 200 MG TAB PO ×3 (09:31→21:04)
[2018-09-16] MEDS: ASPIRIN 325 MG TAB PO (09:32)
[2018-09-16] MEDS: PROPRANOLOL 10 MG TAB PO ×3 (09:32→21:00)
[2018-09-16] MEDS: PANTOPRAZOLE 40MG TAB (PROTONIX) PO (09:32)
[2018-09-16] MEDS: predniSONE 5 MG TAB PO ×2 (09:32→21:01)
[2018-09-16] MEDS: CHLORHEXIDINE ORAL RINSE 0.12%/15ML 120ML BOTTLE SSP ×3 (09:33→21:04)
[2018-09-16] MEDS: METOPROLOL SUCC *XL* 25MG TAB (TopROL *XL*) PO (09:33)
[2018-09-16] MEDS: CLOPIDOGREL 75 MG TAB PO (09:33)
[2018-09-16] MEDS: levETIRAcetam 250MG TABLET (KEPPRA) PO ×2 (09:33→21:04)
[2018-09-16] MEDS: ENOXAPARIN 40 MG/0.4 ML SYRINGE (J1650) SC (09:33)
[2018-09-16] MEDS: TIOTROPIUM INHALER/CAPSULE (SPIRIVA) INH (09:44)
[2018-09-17] MEDS: TIOTROPIUM INHALER/CAPSULE (SPIRIVA) INH (07:15)
[2018-09-17] MEDS: ADVAIR HFA 115/21MCG INHALER INH ×2 (07:15→20:04)
[2018-09-17 07:30] LABS: BASO % 0.2 % (0.0-1.0); EOS % 0.2 % (0.0-3.0); HEMATOCRIT 39.9 % (36.0-47.0); HEMOGLOBIN 12.6 g/dl (12.0-15.5); IMMATURE GRANULOCYTE % 0.5 % (0-3.0); LYMPH # 2.5 10^3/uL (1.5-4.5); LYMPH % 41.7 % (24.0-44.0); MEAN CORPUSCULAR HEMOGLOBIN 23.2 pg (27.0-33.0); MEAN CORPUSCULAR HGB CONC 31.6 g/dl (32.0-36.5); MEAN CORPUSCULAR VOLUME 73.6 fl (80.0-96.0); MONO # 0.3 10^3/uL (0.0-0.8); MONO % 5.6 % (0.0-5.0); NEUTROPHILS # 3.1 10^3/uL (1.8-7.7); NEUTROPHILS % 51.8 % (36.0-66.0); PLATELET COUNT, AUTOMATED 224 10^3/uL (150-450); RED BLOOD COUNT 5.42 10^6/uL (4.00-5.40); RED CELL DISTRIBUTION WIDTH 16.8 % (11.5-14.5); WHITE BLOOD COUNT 5.9 10^3/uL (4.0-10.0)
[2018-09-17 07:53] LABS: ANION GAP 10 MEQ/L (8-16); BLOOD UREA NITROGEN 20 MG/DL (7-18); CALCIUM LEVEL 8.8 MG/DL (8.5-10.1); CARBON DIOXIDE LEVEL 24 MEQ/L (21-32); CHLORIDE LEVEL 109 MEQ/L (98-107); CREATININE FOR GFR 0.75 MG/DL (0.55-1.30); GLOMERULAR FILTRATION RATE > 60.0 (>58); GLUCOSE, FASTING 104 MG/DL (70-100); POTASSIUM SERUM 3.8 MEQ/L (3.5-5.1); SODIUM LEVEL 143 MEQ/L (136-145)
[2018-09-17] MEDS: levETIRAcetam 250MG TABLET (KEPPRA) PO ×2 (09:14→20:54)
[2018-09-17] MEDS: predniSONE 5 MG TAB PO ×2 (09:14→20:54)
[2018-09-17] MEDS: guaiFENesin 200 MG TAB PO ×3 (09:14→20:54)
[2018-09-17] MEDS: CLOPIDOGREL 75 MG TAB PO (09:14)
[2018-09-17] MEDS: ASPIRIN 325 MG TAB PO (09:14)
[2018-09-17] MEDS: PROPRANOLOL 10 MG TAB PO ×3 (09:14→20:54)
[2018-09-17] MEDS: PANTOPRAZOLE 40MG TAB (PROTONIX) PO (09:14)
[2018-09-17] MEDS: NICOTINE 14 MG/24 HR TRANSDERMAL TD (09:15)
[2018-09-17] MEDS: ENOXAPARIN 40 MG/0.4 ML SYRINGE (J1650) SC (09:15)
[2018-09-17] MEDS: METOPROLOL SUCC *XL* 25MG TAB (TopROL *XL*) PO (09:15)
[2018-09-17] MEDS: CHLORHEXIDINE ORAL RINSE 0.12%/15ML 120ML BOTTLE SSP ×3 (09:15→20:54)
[2018-09-18] MEDS: ADVAIR HFA 115/21MCG INHALER INH (07:23)
[2018-09-18] MEDS: TIOTROPIUM INHALER/CAPSULE (SPIRIVA) INH (07:23)
[2018-09-18] MEDS: levETIRAcetam 250MG TABLET (KEPPRA) PO ×2 (08:55→20:31)
[2018-09-18] MEDS: METOPROLOL SUCC *XL* 25MG TAB (TopROL *XL*) PO (08:56)
[2018-09-18] MEDS: NICOTINE 14 MG/24 HR TRANSDERMAL TD (08:56)
[2018-09-18] MEDS: CLOPIDOGREL 75 MG TAB PO (08:57)
[2018-09-18] MEDS: guaiFENesin 200 MG TAB PO ×3 (08:57→20:31)
[2018-09-18] MEDS: PANTOPRAZOLE 40MG TAB (PROTONIX) PO (08:57)
[2018-09-18] MEDS: ASPIRIN 325 MG TAB PO (08:57)
[2018-09-18] MEDS: predniSONE 5 MG TAB PO ×2 (08:57→20:31)
[2018-09-18] MEDS: ENOXAPARIN 40 MG/0.4 ML SYRINGE (J1650) SC (08:57)
[2018-09-18] MEDS: CHLORHEXIDINE ORAL RINSE 0.12%/15ML 120ML BOTTLE SSP ×3 (08:58→20:32)
[2018-09-18] MEDS: PROPRANOLOL 10 MG TAB PO ×3 (10:17→20:32)
[2018-09-19] MEDS: ADVAIR HFA 115/21MCG INHALER INH ×3 (01:03→23:05)
[2018-09-19] MEDS: TIOTROPIUM INHALER/CAPSULE (SPIRIVA) INH (07:28)
[2018-09-19] MEDS: ENOXAPARIN 40 MG/0.4 ML SYRINGE (J1650) SC (09:03)
[2018-09-19] MEDS: guaiFENesin 200 MG TAB PO ×3 (09:04→20:06)
[2018-09-19] MEDS: PANTOPRAZOLE 40MG TAB (PROTONIX) PO (09:04)
[2018-09-19] MEDS: NICOTINE 14 MG/24 HR TRANSDERMAL TD (09:04)
[2018-09-19] MEDS: PROPRANOLOL 10 MG TAB PO ×3 (09:04→20:07)
[2018-09-19] MEDS: METOPROLOL SUCC *XL* 25MG TAB (TopROL *XL*) PO (09:04)
[2018-09-19] MEDS: ASPIRIN 325 MG TAB PO (09:04)
[2018-09-19] MEDS: levETIRAcetam 250MG TABLET (KEPPRA) PO ×2 (09:05→20:06)
[2018-09-19] MEDS: CHLORHEXIDINE ORAL RINSE 0.12%/15ML 120ML BOTTLE SSP ×3 (09:05→20:07)
[2018-09-19] MEDS: predniSONE 5 MG TAB PO ×2 (09:05→20:06)
[2018-09-19] MEDS: CLOPIDOGREL 75 MG TAB PO (09:05)
[2018-09-20] MEDS: ADVAIR HFA 115/21MCG INHALER INH ×2 (07:47→20:15)
[2018-09-20] MEDS: TIOTROPIUM INHALER/CAPSULE (SPIRIVA) INH (07:47)
[2018-09-20] MEDS: levETIRAcetam 250MG TABLET (KEPPRA) PO ×2 (09:23→20:57)
[2018-09-20] MEDS: ASPIRIN 325 MG TAB PO (09:23)
[2018-09-20] MEDS: guaiFENesin 200 MG TAB PO ×3 (09:23→20:57)
[2018-09-20] MEDS: CLOPIDOGREL 75 MG TAB PO (09:23)
[2018-09-20] MEDS: predniSONE 5 MG TAB PO ×2 (09:23→20:57)
[2018-09-20] MEDS: NICOTINE 14 MG/24 HR TRANSDERMAL TD (09:24)
[2018-09-20] MEDS: CHLORHEXIDINE ORAL RINSE 0.12%/15ML 120ML BOTTLE SSP ×3 (09:24→20:58)
[2018-09-20] MEDS: METOPROLOL SUCC *XL* 25MG TAB (TopROL *XL*) PO (09:24)
[2018-09-20] MEDS: ENOXAPARIN 40 MG/0.4 ML SYRINGE (J1650) SC (09:24)
[2018-09-20] MEDS: PANTOPRAZOLE 40MG TAB (PROTONIX) PO (09:25)
[2018-09-20] MEDS: PROPRANOLOL 10 MG TAB PO ×3 (10:32→20:57)
[2018-09-21] MEDS: ADVAIR HFA 115/21MCG INHALER INH ×2 (07:23→19:58)
[2018-09-21] MEDS: TIOTROPIUM INHALER/CAPSULE (SPIRIVA) INH (07:23)
[2018-09-21] MEDS: levETIRAcetam 250MG TABLET (KEPPRA) PO ×2 (08:34→20:37)
[2018-09-21] MEDS: ASPIRIN 325 MG TAB PO (08:34)
[2018-09-21] MEDS: NICOTINE 14 MG/24 HR TRANSDERMAL TD (08:34)
[2018-09-21] MEDS: predniSONE 5 MG TAB PO ×2 (08:34→20:35)
[2018-09-21] MEDS: PANTOPRAZOLE 40MG TAB (PROTONIX) PO (08:34)
[2018-09-21] MEDS: CLOPIDOGREL 75 MG TAB PO (08:34)
[2018-09-21] MEDS: CHLORHEXIDINE ORAL RINSE 0.12%/15ML 120ML BOTTLE SSP ×3 (08:35→21:50)
[2018-09-21] MEDS: ENOXAPARIN 40 MG/0.4 ML SYRINGE (J1650) SC (08:35)
[2018-09-21] MEDS: guaiFENesin 200 MG TAB PO ×3 (08:35→20:37)
[2018-09-21] MEDS: METOPROLOL SUCC *XL* 25MG TAB (TopROL *XL*) PO (08:35)
[2018-09-21] MEDS: PROPRANOLOL 10 MG TAB PO ×3 (10:09→20:37)
[2018-09-22] MEDS: ADVAIR HFA 115/21MCG INHALER INH (08:24)
[2018-09-22] MEDS: TIOTROPIUM INHALER/CAPSULE (SPIRIVA) INH (08:24)
[2018-09-22] MEDS: CLOPIDOGREL 75 MG TAB PO (09:06)
[2018-09-22] MEDS: predniSONE 5 MG TAB PO (09:06)
[2018-09-22] MEDS: ENOXAPARIN 40 MG/0.4 ML SYRINGE (J1650) SC (09:06)
[2018-09-22] MEDS: METOPROLOL SUCC *XL* 25MG TAB (TopROL *XL*) PO (09:07)
[2018-09-22] MEDS: levETIRAcetam 250MG TABLET (KEPPRA) PO (09:07)
[2018-09-22] MEDS: PANTOPRAZOLE 40MG TAB (PROTONIX) PO (09:07)
[2018-09-22] MEDS: ASPIRIN 325 MG TAB PO (09:07)
[2018-09-22] MEDS: guaiFENesin 200 MG TAB PO (09:07)
[2018-09-22] MEDS: CHLORHEXIDINE ORAL RINSE 0.12%/15ML 120ML BOTTLE SSP (09:08)
[2018-09-22] MEDS: NICOTINE 14 MG/24 HR TRANSDERMAL TD (09:08)
[2018-09-22] MEDS: PROPRANOLOL 10 MG TAB PO (10:40)
== END 2018-09-22 13:14 | disposition home health service (06) | DRG 52 ==
LOC: M PM&R 09-11 17:42
DX: G93.1 Anoxic brain damage, not elsewhere classified (principal); I21.4 Non-ST elevation (NSTEMI) myocardial infarction; Z86.74 Personal history of sudden cardiac arrest; G40.409 Other generalized epilepsy and epileptic syndromes, not intractable, without status epilepticus; R13.10 Dysphagia, unspecified; I10 Essential (primary) hypertension; J45.909 Unspecified asthma, uncomplicated; F17.210 Nicotine dependence, cigarettes, uncomplicated; G47.00 Insomnia, unspecified; Z90.49 Acquired absence of other specified parts of digestive tract; Z98.51 Tubal ligation status; Z79.82 Long term (current) use of aspirin; Z79.52 Long term (current) use of systemic steroids; Z79.899 Other long term (current) drug therapy; Z88.0 Allergy status to penicillin; Z88.6 Allergy status to analgesic agent; Z88.5 Allergy status to narcotic agent

== ENCOUNTER → 2018-09-23 | Outpatient (CLI) | payer OTHER | LOC: M OUTALCOH 09:05 | DX: F15.20 Other stimulant dependence, uncomplicated (principal) ==

== ENCOUNTER 2018-09-30 13:54 | Outpatient (RCR) | payer OTHER ==
[~2018-09-30 13:54] MED LIST changes: +ADVA115A INH; +AMBI10TA PO; +ARNU1INH INH; +ASPI1TAB20 PO; +CLON-412 PO; +CLON0.2T PO; +CLOP75TA2 PO; +COMMENT; +FOLI1TAB11 PO; +GABA600T4 PO; +KEPP250T5 PO; +LEVA12INH INH; +LORA2TAB9 PO; +MAXZTA PO; +METO1TAB32 PO; +MULTCAP PO; +NICO14PA TD; +NICO21DI31 TD; +NITR0.3S4 SL; -NITROGLYCERIN 0.3 MG SUBL TAB SL; -NS 1,000 ML IV; +OMEP40CA2 PO; +PANT40TA3 PO; +PRED5TA PO; +PROP10TAB PO; +ROBA500T PO; +SPIR1CAP INH; +TIOT18INH INH; +TRAM50TA2 PO; +VENL150C43 PO; +VENL37.52 PO; +VENTAER INH; +VIST50CA PO; +VITA100T60 PO; +atarax PO; -levETIRAcetam INJection 1,000 MG in D5W 100 ML IV
== END 2018-10-26 ==
LOC: M OUTALCOH 13:54
PROVIDERS: ATTEND Psychiatry & Neurology Psychiatry
DX: F15.10 Other stimulant abuse, uncomplicated (principal); F11.20 Opioid dependence, uncomplicated; Z72.0 Tobacco use

== ENCOUNTER → 2018-10-23 | Outpatient (REF) | payer OTHER ==
[2018-10-23 14:26] LABS: BASO % 0.3 % (0.0-1.0); HEMATOCRIT 39.3 % (36.0-47.0); HEMOGLOBIN 12.8 g/dl (12.0-15.5); LYMPH # 2.6 10^3/uL (1.5-4.5); LYMPH % 26.5 % (24.0-44.0); MEAN CORPUSCULAR HEMOGLOBIN 23.6 pg (27.0-33.0); MEAN CORPUSCULAR HGB CONC 32.6 g/dl (32.0-36.5); MEAN CORPUSCULAR VOLUME 72.4 fl (80.0-96.0); MONO # 0.6 10^3/uL (0.0-0.8); MONO % 6.2 % (0.0-5.0); NEUTROPHILS # 6.5 10^3/uL (1.8-7.7); NEUTROPHILS % 65.8 % (36.0-66.0); PLATELET COUNT, AUTOMATED 314 10^3/uL (150-450); RED BLOOD COUNT 5.43 10^6/uL (4.00-5.40); WHITE BLOOD COUNT 9.8 10^3/uL (4.0-10.0)
[2018-10-23 14:53] LABS: ALBUMIN 3.4 GM/DL (3.2-5.2); ALT/SGPT 33 U/L (12-78); BILIRUBIN,TOTAL 0.2 MG/DL (0.2-1.0); BLOOD UREA NITROGEN 17 MG/DL (7-18); CALCIUM LEVEL 9.2 MG/DL (8.5-10.1); CARBON DIOXIDE LEVEL 19 MEQ/L (21-32); CHLORIDE LEVEL 108 MEQ/L (98-107); CREATININE FOR GFR 1.04 MG/DL (0.55-1.30); GLOMERULAR FILTRATION RATE > 60.0 (>58); GLUCOSE, FASTING 159 MG/DL (70-100); POTASSIUM SERUM 4.3 MEQ/L (3.5-5.1); SODIUM LEVEL 141 MEQ/L (136-145); TOTAL PROTEIN 7.4 GM/DL (6.4-8.2)
== END ==
LOC: M LABDRAW1 09:11 → M SFHCPLAZ 09:11
PROVIDERS: ATTEND Physician Assistant Medical
DX: R56.9 Unspecified convulsions (principal); I21.4 Non-ST elevation (NSTEMI) myocardial infarction; D72.829 Elevated white blood cell count, unspecified

== ENCOUNTER → 2018-11-03 | Outpatient (CLI) | payer OTHER ==
--- NOTE | 2018-11-05 16:05 | SLEEPHOME ---
DATE OF PROCEDURE: 11/03/2018 ORDERED BY: Yudith Dunlap home sleep testing was performed due to concern for the obstructive sleep apnea syndrome in this patient with fatigue. For testing, a nocturnal T3 respiratory monitoring device was used. Continuous record was made of pulse, oxygen saturation, airflow, chest and abdominal strain and body position. 9 hours and 59 minutes of data were reviewed. Of these, 4 hours and 9 minutes were marked as time in bed. During the interval marked time in bed, there were 21 respiratory events identified of 10 seconds in duration or greater for a respiratory event index of 5.1. The events were primarily obstructive, more frequent in the supine position but not exclusive to that position. The patient's baseline pulse rate was 61 beats per minute, pulse rate ranged from 23-172. Baseline saturation was measured at 85, although the tracing was somewhat questionable. Saturations were measured as low as 80%. Testing was performed in both the supine and non-positions. IMPRESSION: Abnormal home sleep testing with repetitive respiratory events and oxygen desaturations to 80% with a respiratory event index of 5.1 is consistent with the obstructive sleep apnea syndrome. RECOMMENDATIONS: Sleep position retraining for avoidance of the supine posture may be sufficient to address this patient's problems. If symptoms persist, however, referral for a formal sleep evaluation and in laboratory pressure titration are recommended.
== END ==
LOC: M SLEEP HO 12:52
PROVIDERS: ATTEND Physician Assistant Medical
DX: G47.9 Sleep disorder, unspecified (principal)

== ENCOUNTER → 2018-11-27 | Outpatient (REF) | payer OTHER | LOC: M LABDRAW1 11:40 | PROVIDERS: ATTEND Physician Assistant Medical | DX: R56.9 Unspecified convulsions (principal) ==

== ENCOUNTER 2018-12-12 10:58 | Emergency (ER) | payer OTHER ==
[~2018-12-12] VITALS: Ht 157.5 cm; Wt 92.5 kg
[2018-12-12] MEDS ORDERED: ASPI81CH30 (11:17)
--- NOTE | 2018-12-12 12:05 | REP ---
CHEST PA AND LATERAL: 12/12/2018. Comparison: 09/08/2018. Clinical history: Chest pain. Findings: Two-view show the lung jesus well inflated and without infiltrate, effusion, atelectasis or mass. The basilar atelectatic change on the left on the previous study has resolved. Heart is not enlarged. Aorta and airway intact. No widening of the mediastinum. Bony thorax shows no compression deformity in the spine but does have some marginal osteophytes and sclerosis at endplates in the mid and lower thoracic region. No kyphosis. The clavicles and shoulders grossly intact. No free air. Impression: 1. No acute cardiopulmonary change. Previously noted linear atelectatic change in the left CP angle in August is resolved. No new or superimposed findings such as effusion, pneumothorax, atelectasis or mass. 2. Visualized bones grossly intact. No widening of the mediastinum or other significant finding. Electronically Signed by Chris Escamilla MD 12/12/2018 07:43 P
[2018-12-12] MEDS ORDERED: ASPIRIN 325 MG TAB PO ONE (12:15)
[2018-12-12 13:30] LABS: BASO % 0.1 % (0.0-1.0); HEMATOCRIT 39.9 % (36.0-47.0); HEMOGLOBIN 12.4 g/dl (12.0-15.5); LYMPH # 2.8 10^3/uL (1.5-4.5); LYMPH % 29.5 % (24.0-44.0); MEAN CORPUSCULAR HEMOGLOBIN 22.9 pg (27.0-33.0); MEAN CORPUSCULAR HGB CONC 31.1 g/dl (32.0-36.5); MEAN CORPUSCULAR VOLUME 73.8 fl (80.0-96.0); MONO # 0.5 10^3/uL (0.0-0.8); MONO % 5.4 % (0.0-5.0); NEUTROPHILS # 6.2 10^3/uL (1.8-7.7); NEUTROPHILS % 64.7 % (36.0-66.0); PLATELET COUNT, AUTOMATED 256 10^3/uL (150-450); RED BLOOD COUNT 5.41 10^6/uL (4.00-5.40); WHITE BLOOD COUNT 9.6 10^3/uL (4.0-10.0)
[2018-12-12 13:52] LABS: INR 0.92; PROTHROMBIN TIME 12.5 SECONDS (12.1-14.4)
[2018-12-12 13:53] LABS: PARTIAL THROMBOPLASTIN TIME 28.9 SECONDS (25.4-37.6)
[2018-12-12 13:55] LABS: D-DIMER QUANT 389.86 ng/ml (<500)
[2018-12-12 13:56] LABS: ALBUMIN 3.6 GM/DL (3.2-5.2); ALT/SGPT 19 U/L (12-78); BILIRUBIN,DIRECT < 0.1 MG/DL (0.0-0.2); BILIRUBIN,TOTAL 0.2 MG/DL (0.2-1.0); BLOOD UREA NITROGEN 19 MG/DL (7-18); CALCIUM LEVEL 8.7 MG/DL (8.5-10.1); CARBON DIOXIDE LEVEL 26 MEQ/L (21-32); CHLORIDE LEVEL 107 MEQ/L (98-107); CK-MB VALUE MASS < 1.0 NG/ML (<3.6); CPK CREATINE PHOSPHOKINASE 35 U/L (26-192); CREATININE FOR GFR 0.99 MG/DL (0.55-1.30); FREE T4 1.14 NG/DL (0.76-1.46); GLOMERULAR FILTRATION RATE > 60.0 (>58); GLUCOSE, FASTING 110 MG/DL (70-100); LIPASE 138 U/L (73-393); MB/CK RELATIVE INDEX 2.86 (< OR =4); SODIUM LEVEL 140 MEQ/L (136-145); TOTAL PROTEIN 7.6 GM/DL (6.4-8.2); TROPONIN I < 0.02 NG/ML (< 0.10)
[2018-12-12 14:52] VITALS: BP 127/84
--- NOTE | 2018-12-12 19:37 | ECGEPIP ---
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
== END 2018-12-12 14:59 | disposition home or self-care (01) ==
LOC: M ED 10:58
DX: M54.6 Pain in thoracic spine (principal); G47.00 Insomnia, unspecified; R51 Headache; R56.9 Unspecified convulsions; F41.9 Anxiety disorder, unspecified; F32.9 Major depressive disorder, single episode, unspecified; J44.9 Chronic obstructive pulmonary disease, unspecified; Z87.891 Personal history of nicotine dependence; M54.9 Dorsalgia, unspecified; M79.669 Pain in unspecified lower leg; Z79.82 Long term (current) use of aspirin; Z79.899 Other long term (current) drug therapy; Z88.5 Allergy status to narcotic agent; Z88.0 Allergy status to penicillin; Z88.6 Allergy status to analgesic agent; Z88.8 Allergy status to other drugs, medicaments and biological substances

== ENCOUNTER 2019-03-31 09:01 | Emergency (ER) | payer OTHER ==
[~2019-03-31] VITALS: Ht 157.5 cm; Wt 105.5 kg
[~2019-03-31 09:01] MED LIST changes: +GOOD81CH; +PROP10TA55 PO; -PROP10TAB PO
[2019-03-31] MEDS ORDERED: ADVA115A INH (09:39)
[2019-03-31 10:26] VITALS: BP 114/81
== END 2019-03-31 10:26 | disposition home or self-care (01) ==
LOC: M ED 09:01
DX: B34.9 Viral infection, unspecified (principal); R60.0 Localized edema; J44.9 Chronic obstructive pulmonary disease, unspecified; F33.9 Major depressive disorder, recurrent, unspecified; F41.9 Anxiety disorder, unspecified; I25.2 Old myocardial infarction; Z87.891 Personal history of nicotine dependence; Z79.899 Other long term (current) drug therapy; Z79.82 Long term (current) use of aspirin

== ENCOUNTER → 2019-04-15 | Outpatient (REF) | payer OTHER | LOC: M SFHCPLAZ 11:30 | PROVIDERS: ATTEND Physician Assistant Medical | DX: Z53.9 Procedure and treatment not carried out, unspecified reason (principal); R53.83 Other fatigue ==

== ENCOUNTER → 2019-04-19 | Outpatient (REF) | payer OTHER ==
[2019-04-19 15:50] LABS: BASO % 0.1 % (0.0-1.0); EOS % 0.1 % (0.0-3.0); HEMATOCRIT 37.9 % (36.0-47.0); HEMOGLOBIN 11.5 g/dl (12.0-15.5); LYMPH # 2.3 10^3/uL (1.5-4.5); LYMPH % 25.1 % (24.0-44.0); MEAN CORPUSCULAR HEMOGLOBIN 21.2 pg (27.0-33.0); MEAN CORPUSCULAR HGB CONC 30.3 g/dl (32.0-36.5); MEAN CORPUSCULAR VOLUME 69.9 fl (80.0-96.0); MONO # 0.6 10^3/uL (0.0-0.8); MONO % 6.3 % (0.0-5.0); NEUTROPHILS # 6.3 10^3/uL (1.8-7.7); NEUTROPHILS % 68.1 % (36.0-66.0); PLATELET COUNT, AUTOMATED 312 10^3/uL (150-450); RED BLOOD COUNT 5.42 10^6/uL (4.00-5.40); WHITE BLOOD COUNT 9.2 10^3/uL (4.0-10.0)
[2019-04-19 16:04] LABS: FREE T4 1.18 NG/DL (0.76-1.46); THYROID STIMULATING HORMONE 2.89 uIU/ML (0.358-3.740)
[2019-04-19 16:18] LABS: TOTAL 25(OH) VITAMIN D 12.8 NG/ML (30.0-100.0)
== END ==
LOC: M SFHCPLAZ 13:01
PROVIDERS: ATTEND Physician Assistant Medical
DX: R53.83 Other fatigue (principal)

== ENCOUNTER → 2019-07-16 | Outpatient (CLI) | payer OTHER ==
[~2019-07-16] MED LIST changes: -ASPI1TAB20 PO; +ASPI325T57 PO; -GOOD81CH; +GOOD81CH2
--- NOTE | 2019-07-16 11:23 | REP ---
Ultrasound of a palpable lump in the right forearm: The liver port is present for over a year. Ultrasonography of the palpable lump identifies a multilobulated solid nodule measuring 1.2 x 0.8 x 1.2 cm. The this is nonspecific. Some diagnostic considerations are epidermoid, sebaceous cyst, lipoma, nerve sheath tumor, fibroma. Impression: The palpable lump corresponds to a multilobulated soft tissue nodule. Electronically Signed by Barry Ahmadi MD 07/16/2019 11:14 A
== END ==
LOC: M RAD 09:43
PROVIDERS: ATTEND Physician Assistant Medical
DX: R22.31 Localized swelling, mass and lump, right upper limb (principal)

== ENCOUNTER 2019-10-30 09:29 | Emergency (ER) | payer OTHER ==
[~2019-10-30] VITALS: Ht 157.5 cm; Wt 100.0 kg
[~2019-10-30 09:29] MED LIST changes: -OMEP40CA2 PO; +OMEP40CA97 PO
[2019-10-30] MEDS ORDERED: PARO5TAB PO (09:51)
[2019-10-30 11:07] LABS: HEMATOCRIT 37.8 % (36.0-47.0); HEMOGLOBIN 10.8 g/dl (12.0-15.5); MEAN CORPUSCULAR HEMOGLOBIN 19.5 pg (27.0-33.0); MEAN CORPUSCULAR HGB CONC 28.6 g/dl (32.0-36.5); MEAN CORPUSCULAR VOLUME 68.1 fl (80.0-96.0); PLATELET COUNT, AUTOMATED 323 10^3/uL (150-450); RED BLOOD COUNT 5.55 10^6/uL (4.00-5.40); WHITE BLOOD COUNT 6.1 10^3/uL (4.0-10.0)
[2019-10-30 11:27] LABS: BLOOD UREA NITROGEN 13 MG/DL (7-18); CALCIUM LEVEL 8.8 MG/DL (8.5-10.1); CARBON DIOXIDE LEVEL 26 MEQ/L (21-32); CHLORIDE LEVEL 107 MEQ/L (98-107); CREATININE FOR GFR 1.16 MG/DL (0.55-1.30); GLOMERULAR FILTRATION RATE 54.3 (>58); GLUCOSE, FASTING 117 MG/DL (70-100); HCG, SERUM QUANTITATIVE < 1.0 MIU/ML; POTASSIUM SERUM 4.1 MEQ/L (3.5-5.1); SODIUM LEVEL 139 MEQ/L (136-145)
--- NOTE | 2019-10-30 12:34 | REP ---
CT STUDY OF THE CERVICAL SPINE WITHOUT CONTRAST: HISTORY: Syncope history of a fall. TECHNIQUE: Helical scanning is acquired and overlapping 2 mm high resolution axial images were generated and reviewed at bone and soft tissue window settings. Coronal and sagittal multiplanar re-formations images are generated. CT FINDINGS: There is no evidence of cervical spine element fracture. No skull base fracture is seen. Cervical vertebral body heights are preserved. Alignment is normal. Facet joints are normally aligned bilaterally at each cervical level on multiplanar re-formations images. There is no evidence of intraspinal or paraspinal hematoma. No extra vertebral abnormality is seen. The posterior arch at C1 is developmentally incomplete. There is a small hypoplastic cervical rib on the left at C7. There are mild degenerative spondylosis changes. 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 There are mild discogenic spurs and uncovertebral spurring bilaterally at C3-4. Central disc bulging and disc narrowing is seen at C5-6. IMPRESSION: Mild degenerative spondylosis changes. Otherwise negative CT study of the cervical spine without contrast. No fracture seen. Electronically Signed by Alcides Montes MD 10/30/2019 01:30 P
--- NOTE | 2019-10-30 12:36 | REP ---
CT BRAIN WITHOUT CONTRAST: HISTORY: Syncope. Fall. Comparison CT studies are from September 05 2018 and August 24, 2018. FINDINGS: Preliminary digital jewel waxer radiograph is unremarkable. The patient is edentulous. The bony calvarium is intact. No intraorbital abnormality is seen. Visualized paranasal sinuses are clear. There is an old subcentimeter low density area in the sub insular region of the left basal ganglia consistent with old lacunar infarct. This is unchanged from the August and July 2018 prior studies. There is a similar sized low-density area on the right, which is also unchanged. This may be dilated perivascular spaces. In any event, it is not new. No acute infarct is seen. There is no evidence of intracranial hemorrhage. No extra-axial fluid collection, mass, or midline shift. IMPRESSION: Findings unchanged from September 05, 2018. No acute intracranial abnormality. Electronically Signed by Alcides Montes MD 10/30/2019 01:31 P
[2019-10-30] MEDS ORDERED: MIRA1POW3 PO (12:57)
[2019-10-30 13:09] VITALS: BP 144/79
--- NOTE | 2019-10-31 05:50 | ECGEPIP ---
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
== END 2019-10-30 13:11 | disposition home or self-care (01) ==
LOC: M ED 09:29
DX: R55 Syncope and collapse (principal); K59.00 Constipation, unspecified; M54.9 Dorsalgia, unspecified; M25.569 Pain in unspecified knee; G47.00 Insomnia, unspecified; J44.9 Chronic obstructive pulmonary disease, unspecified; K21.9 Gastro-esophageal reflux disease without esophagitis; F17.200 Nicotine dependence, unspecified, uncomplicated; M47.9 Spondylosis, unspecified; Z79.82 Long term (current) use of aspirin; Z79.899 Other long term (current) drug therapy; Z88.0 Allergy status to penicillin; Z88.5 Allergy status to narcotic agent; Z88.6 Allergy status to analgesic agent; Z88.8 Allergy status to other drugs, medicaments and biological substances

== ENCOUNTER → 2019-11-26 | Outpatient (CLI) | payer OTHER ==
[~2019-11-26] MED LIST changes: +LORA2TAB14 PO; -LORA2TAB9 PO; +MIRA1POW3 PO; +PARO5TAB PO
== END ==
LOC: M PLALAB 11:44
PROVIDERS: ATTEND Physician Assistant Medical
DX: R56.9 Unspecified convulsions (principal)

== ENCOUNTER → 2020-04-25 | Outpatient (REF) | payer OTHER | LOC: M SFHCWAGY 16:54 | PROVIDERS: ATTEND Advanced Practice Midwife | DX: Z12.4 Encounter for screening for malignant neoplasm of cervix (principal) ==

== ENCOUNTER → 2020-04-25 | Outpatient (CLI) | payer OTHER ==
--- NOTE | 2020-04-25 11:44 | REPMRS ---
Patient History The patient states she had a clinical breast exam in March 2020. No known family history of cancer. Digital Woman Screen Mammo: April 25, 2020 - Exam #: [id number] Bilateral CC and MLO view(s) were taken. Technologist: Sivan Galloway Technologist Prior study comparison: October 16, 2017, digital woman screen mammo performed at [facility] [place]. FINDINGS: There are scattered fibroglandular densities. The Volpara volumetric breast density category is:B. There has been no change in the appearance of the mammogram from the prior studies. There is a mild amount of scattered fibroglandular density which is fairly symmetric. There is no interval development of dominant mass, architectural distortion, or grouped microcalcification suggestive of malignancy. 3-D tomosynthesis shows no additional findings. Assessment: BI-RADS/ACR category 1 mammogram. Negative Mammogram. Recommendation Routine screening mammogram of both breasts in 1 year (for women over age 40). This patient's Lifetime Breast Cancer Risk is estimated at 8.0 %. This mammogram was interpreted with the aid of an FDA-approved computer-aided dectection system. Electronically Signed By: Chad Montes MD 04/25/20 [id number]
== END ==
LOC: M WHC 09:06
PROVIDERS: ATTEND Physician Assistant Medical
DX: Z12.31 Encounter for screening mammogram for malignant neoplasm of breast (principal)

== ENCOUNTER 2020-05-02 13:22 | Emergency (ER) | payer OTHER ==
[~2020-05-02] VITALS: Ht 157.5 cm; Wt 97.3 kg
[2020-05-02 14:51] LABS: BASO % 0.3 % (0.0-1.0); EOS # 0.1 10^3/uL (0.0-0.5); EOS % 1.3 % (0.0-3.0); HEMATOCRIT 34.4 % (36.0-47.0); HEMOGLOBIN 9.8 g/dl (12.0-15.5); LYMPH # 1.6 10^3/uL (1.5-5.0); LYMPH % 24.3 % (24.0-44.0); MEAN CORPUSCULAR HEMOGLOBIN 18.3 pg (27.0-33.0); MEAN CORPUSCULAR HGB CONC 28.5 g/dl (32.0-36.5); MEAN CORPUSCULAR VOLUME 64.2 fl (80.0-96.0); MONO # 0.5 10^3/uL (0.0-0.8); MONO % 7.8 % (0.0-5.0); NEUTROPHILS # 4.2 10^3/uL (1.5-8.5); PLATELET COUNT, AUTOMATED 344 10^3/uL (150-450); RED BLOOD COUNT 5.36 10^6/uL (4.00-5.40); WHITE BLOOD COUNT 6.4 10^3/uL (4.0-10.0)
[2020-05-02 15:01] LABS: INR 1.02; PROTHROMBIN TIME 13.1 SECONDS (11.8-14.0)
[2020-05-02 15:02] LABS: PARTIAL THROMBOPLASTIN TIME 25.9 SECONDS (25.0-38.4)
[2020-05-02 15:04] LABS: D-DIMER QUANT 420.16 ng/ml (<500)
[2020-05-02 15:18] LABS: ALBUMIN 3.1 GM/DL (3.2-5.2); ALT/SGPT 24 U/L (12-78); BILIRUBIN,DIRECT 0.1 MG/DL (0.0-0.2); BILIRUBIN,TOTAL 0.2 MG/DL (0.2-1.0); BLOOD UREA NITROGEN 13 MG/DL (7-18); CALCIUM LEVEL 8.8 MG/DL (8.5-10.1); CARBON DIOXIDE LEVEL 25 MEQ/L (21-32); CHLORIDE LEVEL 107 MEQ/L (98-107); CK-MB VALUE MASS < 1.0 NG/ML (<3.6); CPK CREATINE PHOSPHOKINASE 33 U/L (26-192); CREATININE FOR GFR 1.11 MG/DL (0.55-1.30); GLOMERULAR FILTRATION RATE 57.1 (>58); GLUCOSE, FASTING 116 MG/DL (70-100); LIPASE 98 U/L (73-393); MB/CK RELATIVE INDEX 3.03 (< OR =4); SODIUM LEVEL 140 MEQ/L (136-145); TOTAL PROTEIN 6.8 GM/DL (6.4-8.2); TROPONIN I < 0.02 NG/ML (< 0.10)
[2020-05-02 20:34] LABS: CK-MB VALUE MASS < 1.0 NG/ML (<3.6); CPK CREATINE PHOSPHOKINASE 27 U/L (26-192); TROPONIN I < 0.02 NG/ML (< 0.10)
--- NOTE | 2020-05-02 21:30 | ECGEPIP ---
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
[2020-05-02 21:36] VITALS: BP 105/65
--- NOTE | 2020-05-02 21:39 | ECGEPIP ---
[facility] - ED Test Date: 2020-05-02 Pat Name: MAIK PADILLA Department: Room: - Gender: Female Pocket Marker: harsh : 1975 Requested By: LIGIA Nicole Order Number: [id number] Reading MD: Mamadou Pulido Measurements Intervals [place] Rate: 63 P: 30 [place]: 137 QRS: 38 QRSD: 81 T: 3 QT: 418 QTc: 431 Interpretive Statements SINUS RHYTHM NONSPECIFIC T WAVE ABNORMALITIES BASELINE ARTIFACT AFFECTS INTERPRETATION SIMILAR TO PRIOR ON SAME DATE Electronically Signed on 05-02-2020 21:39:18 EDT by Mamadou Pulido
--- NOTE | 2020-05-02 23:23 | REP ---
CHEST, SINGLE VIEW: There is no evidence of acute infiltrate. No pleural effusion is seen. The heart is normal in size. The mediastinal silhouette is unremarkable. The visualized osseous structures are intact. IMPRESSION: No acute pulmonary disease. Electronically Signed by Barry Bernstein MD 05/04/2020 09:11 A
== END 2020-05-02 21:40 | disposition home or self-care (01) ==
LOC: M ED 13:22
DX: R07.9 Chest pain, unspecified (principal); M54.9 Dorsalgia, unspecified; M25.569 Pain in unspecified knee; G47.00 Insomnia, unspecified; Z87.891 Personal history of nicotine dependence; Z79.82 Long term (current) use of aspirin; Z79.899 Other long term (current) drug therapy; Z88.0 Allergy status to penicillin; Z88.5 Allergy status to narcotic agent; Z88.6 Allergy status to analgesic agent; Z88.8 Allergy status to other drugs, medicaments and biological substances

== ENCOUNTER → 2020-05-10 | Outpatient (CLI) | payer OTHER ==
[~2020-05-10] MED LIST changes: +PANT40TA29 PO; -PANT40TA3 PO
[2020-05-10 12:59] LABS: BASO % 0.4 % (0.0-1.0); EOS # 0.1 10^3/uL (0.0-0.5); EOS % 1.2 % (0.0-3.0); HEMATOCRIT 37.4 % (36.0-47.0); HEMOGLOBIN 10.4 g/dl (12.0-15.5); LYMPH # 1.6 10^3/uL (1.5-5.0); LYMPH % 24.1 % (24.0-44.0); MEAN CORPUSCULAR HEMOGLOBIN 18.1 pg (27.0-33.0); MEAN CORPUSCULAR HGB CONC 27.8 g/dl (32.0-36.5); MEAN CORPUSCULAR VOLUME 65.2 fl (80.0-96.0); MONO # 0.5 10^3/uL (0.0-0.8); MONO % 6.8 % (0.0-5.0); NEUTROPHILS # 4.6 10^3/uL (1.5-8.5); NEUTROPHILS % 67.1 % (36.0-66.0); PLATELET COUNT, AUTOMATED 390 10^3/uL (150-450); RED BLOOD COUNT 5.74 10^6/uL (4.00-5.40); WHITE BLOOD COUNT 6.8 10^3/uL (4.0-10.0)
[2020-05-10 13:19] LABS: FERRITIN 13 NG/ML (8-252); IRON (FE) 16 UG/DL (50-170)
== END ==
LOC: M LAB 11:13
PROVIDERS: ATTEND Physician Assistant Medical
DX: D50.9 Iron deficiency anemia, unspecified (principal)

== ENCOUNTER → 2020-05-10 | Outpatient (REF) | payer OTHER | LOC: M PLALAB 10:32 | PROVIDERS: ATTEND Physician Assistant Medical | DX: D50.9 Iron deficiency anemia, unspecified (principal) ==

== ENCOUNTER → 2020-07-20 | Outpatient (CLI) | payer OTHER ==
[2020-07-20 13:23] LABS: FERRITIN 28 NG/ML (8-252); IRON (FE) 25 UG/DL (50-170)
[2020-07-20 13:27] LABS: BASO % 0.3 % (0.0-1.0); EOS # 0.1 10^3/uL (0.0-0.5); EOS % 1.5 % (0.0-3.0); HEMATOCRIT 39.9 % (36.0-47.0); HEMOGLOBIN 11.6 g/dl (12.0-15.5); LYMPH # 1.5 10^3/uL (1.5-5.0); LYMPH % 22.2 % (24.0-44.0); MEAN CORPUSCULAR HEMOGLOBIN 20.2 pg (27.0-33.0); MEAN CORPUSCULAR HGB CONC 29.1 g/dl (32.0-36.5); MEAN CORPUSCULAR VOLUME 69.6 fl (80.0-96.0); MONO # 0.4 10^3/uL (0.0-0.8); MONO % 5.9 % (0.0-5.0); NEUTROPHILS # 4.7 10^3/uL (1.5-8.5); NEUTROPHILS % 69.7 % (36.0-66.0); PLATELET COUNT, AUTOMATED 299 10^3/uL (150-450); RED BLOOD COUNT 5.73 10^6/uL (4.00-5.40); WHITE BLOOD COUNT 6.8 10^3/uL (4.0-10.0)
== END ==
LOC: M PLALAB 09:45
PROVIDERS: ATTEND Physician Assistant Medical
DX: Z00.00 Encounter for general adult medical examination without abnormal findings (principal)

== ENCOUNTER → 2020-09-28 | Outpatient (REF) | payer OTHER ==
[~2020-09-28] MED LIST changes: +NICO1DIS12 TD; -NICO21DI31 TD
[2020-09-28 17:13] LABS: ALBUMIN 3.5 GM/DL (3.2-5.2); ALT/SGPT 40 U/L (12-78); BILIRUBIN,TOTAL 0.3 MG/DL (0.2-1.0); BLOOD UREA NITROGEN 16 MG/DL (7-18); CALCIUM LEVEL 9.3 MG/DL (8.5-10.1); CARBON DIOXIDE LEVEL 28 MEQ/L (21-32); CHLORIDE LEVEL 102 MEQ/L (98-107); CREATININE FOR GFR 1.05 MG/DL (0.55-1.30); FERRITIN 32 NG/ML (8-252); FREE T4 1.34 NG/DL (0.76-1.46); GLOMERULAR FILTRATION RATE > 60.0 (>58); GLUCOSE, FASTING 133 MG/DL (70-100); IRON (FE) 66 UG/DL (50-170); POTASSIUM SERUM 4.5 MEQ/L (3.5-5.1); SODIUM LEVEL 136 MEQ/L (136-145)
== END ==
LOC: M SFHCPLAZ 09:42
PROVIDERS: ATTEND Physician Assistant Medical
DX: D50.9 Iron deficiency anemia, unspecified (principal); D72.829 Elevated white blood cell count, unspecified; R56.9 Unspecified convulsions; E66.9 Obesity, unspecified; F41.8 Other specified anxiety disorders

== ENCOUNTER → 2020-09-29 | Outpatient (REF) | payer OTHER ==
[2020-09-29 10:48] LABS: BASO % 0.4 % (0.0-1.0); EOS # 0.1 10^3/uL (0.0-0.5); EOS % 1.7 % (0.0-3.0); HEMATOCRIT 46.5 % (36.0-47.0); HEMOGLOBIN 14.3 g/dl (12.0-15.5); LYMPH # 1.7 10^3/uL (1.5-5.0); LYMPH % 21.8 % (24.0-44.0); MEAN CORPUSCULAR HEMOGLOBIN 22.9 pg (27.0-33.0); MEAN CORPUSCULAR HGB CONC 30.8 g/dl (32.0-36.5); MEAN CORPUSCULAR VOLUME 74.5 fl (80.0-96.0); MONO # 0.4 10^3/uL (0.0-0.8); MONO % 5.2 % (0.0-5.0); NEUTROPHILS # 5.5 10^3/uL (1.5-8.5); NEUTROPHILS % 70.1 % (36.0-66.0); PLATELET COUNT, AUTOMATED 342 10^3/uL (150-450); RED BLOOD COUNT 6.24 10^6/uL (4.00-5.40); WHITE BLOOD COUNT 7.8 10^3/uL (4.0-10.0)
[2020-09-29 12:19] LABS: HEMOGLOBIN A1c 5.7 %
== END ==
LOC: M SFHCPLAZ 10:09
PROVIDERS: ATTEND Physician Assistant Medical
DX: D72.829 Elevated white blood cell count, unspecified (principal); E66.9 Obesity, unspecified

== ENCOUNTER → 2021-02-19 | Outpatient (REF) | payer OTHER ==
[2021-02-19 14:25] LABS: BASO # 0.1 10^3/uL (0.0-0.2); BASO % 0.5 % (0.0-1.0); EOS # 0.1 10^3/uL (0.0-0.5); HEMOGLOBIN 13.3 g/dl (12.0-15.5); LYMPH # 2.3 10^3/uL (1.5-5.0); LYMPH % 22.9 % (24.0-44.0); MEAN CORPUSCULAR HEMOGLOBIN 21.9 pg (27.0-33.0); MEAN CORPUSCULAR HGB CONC 30.2 g/dl (32.0-36.5); MEAN CORPUSCULAR VOLUME 72.6 fl (80.0-96.0); MONO # 0.6 10^3/uL (0.0-0.8); MONO % 6.4 % (2.0-8.0); NEUTROPHILS # 6.8 10^3/uL (1.5-8.5); NEUTROPHILS % 68.7 % (36.0-66.0); PLATELET COUNT, AUTOMATED 389 10^3/uL (150-450); RED BLOOD COUNT 6.06 10^6/uL (4.00-5.40); WHITE BLOOD COUNT 9.9 10^3/uL (4.0-10.0)
[2021-02-19 14:53] LABS: FERRITIN 12 NG/ML (8-252); IRON (FE) 30 UG/DL (50-170)
== END ==
LOC: M PLALAB 11:18
PROVIDERS: ATTEND Physician Assistant Medical
DX: D50.9 Iron deficiency anemia, unspecified (principal)

== ENCOUNTER → 2021-04-05 | Outpatient (CLI) | payer OTHER ==
--- NOTE | 2021-04-05 11:28 | REP ---
INDICATION: Z12.39 SCREENING MAMMO. COMPARISON: Multiple the latest 04/25/2020 the only prior with DBT images for comparison TECHNIQUE: Digital screening mammography was carried out bilaterally using both 2D and 3D projections in both 2D and 3D modalities and compared to the prior exams By history, the patient has no complaints of a palpable breast abnormality or other significant breast complaints. FINDINGS: The breasts are unchanged in size and shape. Scattered dense heterogenous fibroglandular elements are again seen bilaterally. In the upper outer quadrant of the left breast there is a potential elton asymmetric density. No other suspicious features are seen in either breast. There is no skin thickening or nipple retraction. There are no suspicious calcifications. The Volpara volumetric breast density pattern is b. IMPRESSION: BIRADS/ACR category 0. Potential elton asymmetric density left breast upper outer quadrant and for which diagnostic digital magnified spot compression views are recommended in the CC and MLO projections along with diagnostic ultrasonography if necessary. This patient's Tyrer-Cuzick lifetime breast cancer risk assessment score is 7.9%. This mammogram was interpreted with the aid of an FDA-approved computer-aided detection system. The patient states she had a clinical breast exam in over a year. The patient letter being requested is M0 RECOMMENDATION: As above <Electronically signed by Jerrell Dixon > 04/05/21 1125
== END ==
LOC: M WHC 10:09
PROVIDERS: ATTEND Physician Assistant Medical
DX: Z12.31 Encounter for screening mammogram for malignant neoplasm of breast (principal); R92.8 Other abnormal and inconclusive findings on diagnostic imaging of breast

== ENCOUNTER → 2021-05-10 | Outpatient (CLI) | payer OTHER ==
[~2021-05-10] MED LIST changes: +OMEP40CA4 PO; -OMEP40CA97 PO
--- NOTE | 2021-05-10 13:48 | REP ---
INDICATION: ADDL VIEWS/LEFT BREAST-TRAN DENSITY. COMPARISON: Multiple the latest 04/05/2021. TECHNIQUE: Diagnostic digital magnified spot compression views of the left breast were obtained in the CC and MLO projections and compared to the prior exams.. FINDINGS: The diagnostic digital magnified spot compression view of the left breast over the region of interest seen on the prior screening examination of 08/16/2021 has compressed out to normal breast parenchyma. There are no abnormalities. IMPRESSION: BIRADS/ACR category 2 benign findings.. There is no evidence of malignant alteration. This mammogram was interpreted with the aid of an FDA-approved computer-aided detection system. The patient letter being requested is M1. RECOMMENDATION: Repeat screening mammography recommended 1 year (for women over 40). <Electronically signed by Jerrell Dixon > 05/10/21 0898
== END ==
LOC: M WHC 13:16
PROVIDERS: ATTEND Physician Assistant Medical
DX: R92.8 Other abnormal and inconclusive findings on diagnostic imaging of breast (principal)
CPT/HCPCS: 77065; G0279

== ENCOUNTER → 2021-07-03 | Outpatient (CLI) | payer OTHER ==
[2021-07-03 18:11] LABS: BASO # 0.1 10^3/uL (0.0-0.2); BASO % 0.7 % (0.0-1.0); EOS # 0.1 10^3/uL (0.0-0.5); EOS % 0.9 % (0.0-3.0); HEMATOCRIT 44.4 % (36.0-47.0); HEMOGLOBIN 13.3 g/dl (12.0-15.5); LYMPH # 2.9 10^3/uL (1.5-5.0); LYMPH % 31.6 % (24.0-44.0); MEAN CORPUSCULAR HEMOGLOBIN 21.8 pg (27.0-33.0); MEAN CORPUSCULAR VOLUME 72.7 fl (80.0-96.0); MONO # 0.6 10^3/uL (0.0-0.8); MONO % 6.6 % (2.0-8.0); NEUTROPHILS # 5.4 10^3/uL (1.5-8.5); NEUTROPHILS % 59.5 % (36.0-66.0); PLATELET COUNT, AUTOMATED 374 10^3/uL (150-450); RED BLOOD COUNT 6.11 10^6/uL (4.00-5.40); WHITE BLOOD COUNT 9.1 10^3/uL (4.0-10.0)
[2021-07-03 18:44] LABS: ALBUMIN 3.5 GM/DL (3.2-5.2); ALT/SGPT 51 U/L (12-78); BILIRUBIN,TOTAL 0.4 MG/DL (0.2-1.0); BLOOD UREA NITROGEN 12 MG/DL (7-18); CALCIUM LEVEL 9.6 MG/DL (8.5-10.1); CARBON DIOXIDE LEVEL 24 MEQ/L (21-32); CHLORIDE LEVEL 105 MEQ/L (98-107); CREATININE FOR GFR 0.92 MG/DL (0.55-1.30); FERRITIN 15 NG/ML (8-252); GLOMERULAR FILTRATION RATE > 60.0 (>58); GLUCOSE, FASTING 88 MG/DL (70-100); IRON (FE) 33 UG/DL (50-170); POTASSIUM SERUM 4.7 MEQ/L (3.5-5.1); SODIUM LEVEL 139 MEQ/L (136-145)
== END ==
LOC: M PLALAB 15:58
PROVIDERS: ATTEND Physician Assistant Medical
DX: D50.9 Iron deficiency anemia, unspecified (principal); R56.9 Unspecified convulsions

== ENCOUNTER → 2021-11-21 | Outpatient (CLI) | payer OTHER ==
[~2021-11-21] MED LIST changes: -MAXZTA PO; +TRIA75TA2 PO
[2021-11-21 14:02] LABS: BASO % 0.5 % (0.0-1.0); EOS # 0.1 10^3/uL (0.0-0.5); HEMATOCRIT 42.4 % (36.0-47.0); HEMOGLOBIN 12.5 g/dl (12.0-15.5); LYMPH # 2.3 10^3/uL (1.5-5.0); LYMPH % 26.3 % (24.0-44.0); MEAN CORPUSCULAR HEMOGLOBIN 21.4 pg (27.0-33.0); MEAN CORPUSCULAR HGB CONC 29.5 g/dl (32.0-36.5); MEAN CORPUSCULAR VOLUME 72.7 fl (80.0-96.0); MONO # 0.4 10^3/uL (0.0-0.8); MONO % 5.1 % (2.0-8.0); NEUTROPHILS # 5.8 10^3/uL (1.5-8.5); NEUTROPHILS % 66.6 % (36.0-66.0); PLATELET COUNT, AUTOMATED 397 10^3/uL (150-450); RED BLOOD COUNT 5.83 10^6/uL (4.00-5.40); WHITE BLOOD COUNT 8.7 10^3/uL (4.0-10.0)
[2021-11-21 14:09] LABS: CHOLESTEROL RISK RATIO 4.888 (<5)
== END ==
LOC: M PLALAB 10:49
PROVIDERS: ATTEND Physician Assistant Medical
DX: R56.9 Unspecified convulsions (principal)

== ENCOUNTER → 2022-03-19 | Outpatient (CLI) | payer MEDICARE, OTHER ==
[2022-03-19 13:12] LABS: BASO # 0.1 10^3/uL (0.0-0.2); BASO % 0.6 % (0.0-1.0); EOS # 0.1 10^3/uL (0.0-0.5); HEMATOCRIT 43.8 % (36.0-47.0); HEMOGLOBIN 12.9 g/dl (12.0-15.5); LYMPH # 1.9 10^3/uL (1.5-5.0); LYMPH % 22.5 % (24.0-44.0); MEAN CORPUSCULAR HEMOGLOBIN 20.9 pg (27.0-33.0); MEAN CORPUSCULAR HGB CONC 29.5 g/dl (32.0-36.5); MONO # 0.3 10^3/uL (0.0-0.8); MONO % 4.1 % (2.0-8.0); NEUTROPHILS # 5.9 10^3/uL (1.5-8.5); NEUTROPHILS % 71.1 % (36.0-66.0); PLATELET COUNT, AUTOMATED 389 10^3/uL (150-450); RED BLOOD COUNT 6.17 10^6/uL (4.00-5.40); WHITE BLOOD COUNT 8.4 10^3/uL (4.0-10.0)
[2022-03-19 13:22] LABS: ALBUMIN 3.2 GM/DL (3.2-5.2); ALT/SGPT 26 U/L (12-78); BILIRUBIN,TOTAL 0.3 MG/DL (0.2-1.0); BLOOD UREA NITROGEN 8 MG/DL (7-18); CALCIUM LEVEL 9.5 MG/DL (8.5-10.1); CARBON DIOXIDE LEVEL 25 MEQ/L (21-32); CHLORIDE LEVEL 102 MEQ/L (98-107); CREATININE FOR GFR 0.86 MG/DL (0.55-1.30); FERRITIN 12 NG/ML (8-252); GLOMERULAR FILTRATION RATE > 60.0 (>58); GLUCOSE, FASTING 132 MG/DL (70-100); IRON (FE) 24 UG/DL (50-170); POTASSIUM SERUM 3.9 MEQ/L (3.5-5.1); SODIUM LEVEL 136 MEQ/L (136-145)
== END ==
LOC: M PLALAB 09:19
PROVIDERS: ATTEND Physician Assistant Medical
DX: D50.9 Iron deficiency anemia, unspecified (principal); E66.9 Obesity, unspecified

== ENCOUNTER → 2022-05-16 | Outpatient (CLI) | payer MEDICARE, OTHER ==
[~2022-05-16] MED LIST changes: +TRIA75TA10 PO; -TRIA75TA2 PO
[2022-05-16 17:13] LABS: FERRITIN 23 NG/ML (8-252); IRON (FE) 166 UG/DL (50-170)
== END ==
LOC: M PLALAB 12:44
PROVIDERS: ATTEND Physician Assistant Medical
DX: E61.1 Iron deficiency (principal)

== ENCOUNTER → 2022-05-30 | Outpatient (CLI) | payer MEDICARE, OTHER | LOC: M WHC 08:23 | PROVIDERS: ATTEND Physician Assistant Medical | DX: Z12.31 Encounter for screening mammogram for malignant neoplasm of breast (principal) ==

== ENCOUNTER 2022-10-22 13:56 | Emergency (ER) | payer MEDICARE, OTHER ==
[~2022-10-22] VITALS: Ht 157.5 cm; Wt 99.1 kg
[~2022-10-22 13:56] MED LIST changes: -GOOD81CH2; +RA A81CH3
[2022-10-22 13:58] VITALS: BP 101/72
== END 2022-10-22 17:40 | disposition left against medical advice (07) ==
LOC: M ED 13:56
DX: Z53.21 Procedure and treatment not carried out due to patient leaving prior to being seen by health care provider (principal)

== ENCOUNTER → 2022-11-13 | Outpatient (CLI) | payer MEDICARE, OTHER ==
[2022-11-13 17:26] LABS: BASO # 0.1 10^3/uL (0.0-0.2); BASO % 0.9 % (0.0-1.0); EOS # 0.2 10^3/uL (0.0-0.5); EOS % 1.8 % (0.0-3.0); HEMATOCRIT 41.6 % (36.0-47.0); HEMOGLOBIN 12.3 g/dl (12.0-15.5); LYMPH # 2.7 10^3/uL (1.5-5.0); LYMPH % 27.3 % (24.0-44.0); MEAN CORPUSCULAR HGB CONC 29.6 g/dl (32.0-36.5); MONO # 0.5 10^3/uL (0.0-0.8); MONO % 4.7 % (2.0-8.0); NEUTROPHILS # 6.3 10^3/uL (1.5-8.5); NEUTROPHILS % 64.7 % (36.0-66.0); PLATELET COUNT, AUTOMATED 393 10^3/uL (150-450); RED BLOOD COUNT 5.86 10^6/uL (4.00-5.40); WHITE BLOOD COUNT 9.8 10^3/uL (4.0-10.0)
[2022-11-13 17:43] LABS: ALBUMIN 3.1 G/DL (3.2-5.2); ALKALINE PHOSPHATASE 139 U/L (46-116); ALT/SGPT 38 U/L (7.0-40); AST/SGOT 42 U/L (<34); BILIRUBIN,TOTAL 0.4 MG/DL (0.3-1.2); BLOOD UREA NITROGEN 13 MG/DL (9-23); CALCIUM LEVEL 9.2 MG/DL (8.5-10.1); CARBON DIOXIDE LEVEL 23 MMOL/L (20-31); CHLORIDE LEVEL 99 MMOL/L (98-107); CHOLESTEROL LEVEL 177 MG/DL (<200); CHOLESTEROL RISK RATIO 4.62 (<5); CREATININE FOR GFR 0.88 MG/DL (0.55-1.30); GLOMERULAR FILTRATION RATE > 60.0 (>58); GLUCOSE, FASTING 108 MG/DL (60-100); HDL CHOLESTEROL 38.3 MG/DL (>40); IRON (FE) 53 UG/DL (50-170); LDL CHOLESTEROL 103.5 MG/DL (<100); NON-HDL-C 139 MG/DL; POTASSIUM SERUM 4.7 MMOL/L (3.5-5.1); SODIUM LEVEL 133 MMOL/L (136-145); TOTAL PROTEIN 6.8 G/DL (5.7-8.2); TRIGLYCERIDES LEVEL 176 MG/DL (<150)
[2022-11-13 17:45] LABS: FERRITIN 16.9 NG/ML (7.3-270.7); FREE T4 1.22 NG/DL (0.89-1.76); THYROID STIMULATING HORMONE 1.264 uIU/ML (0.55-4.78)
== END ==
LOC: M PLALAB 14:49
PROVIDERS: ATTEND Physician Assistant Medical
DX: R74.8 Abnormal levels of other serum enzymes (principal); K21.9 Gastro-esophageal reflux disease without esophagitis; D72.829 Elevated white blood cell count, unspecified; E61.1 Iron deficiency; F41.8 Other specified anxiety disorders; Z13.220 Encounter for screening for lipoid disorders; R56.9 Unspecified convulsions

== ENCOUNTER → 2023-05-13 | Outpatient (CLI) | payer MEDICARE, OTHER ==
[~2023-05-13] MED LIST changes: +ASPI-663; -RA A81CH3
[2023-05-13 15:51] LABS: ALBUMIN 3.2 G/DL (3.2-5.2); ALKALINE PHOSPHATASE 137 U/L (46-116); ALT/SGPT 39 U/L (7.0-40); AST/SGOT 27 U/L (<34); BILIRUBIN,TOTAL 0.4 MG/DL (0.3-1.2); BLOOD UREA NITROGEN 10 MG/DL (9-23); CALCIUM LEVEL 8.8 MG/DL (8.5-10.1); CARBON DIOXIDE LEVEL 23 MMOL/L (20-31); CHLORIDE LEVEL 103 MMOL/L (98-107); CREATININE FOR GFR 0.79 MG/DL (0.55-1.30); GLOMERULAR FILTRATION RATE > 60.0 (>58); GLUCOSE, FASTING 116 MG/DL (60-100); IRON (FE) 19 UG/DL (50-170); POTASSIUM SERUM 3.9 MMOL/L (3.5-5.1); SODIUM LEVEL 136 MMOL/L (136-145); TOTAL PROTEIN 6.5 G/DL (5.7-8.2)
[2023-05-13 15:52] LABS: BASO # 0.1 10^3/uL (0.0-0.2); BASO % 0.6 % (0.0-1.0); EOS # 0.1 10^3/uL (0.0-0.5); HEMATOCRIT 39.8 % (36.0-47.0); HEMOGLOBIN 11.8 g/dl (12.0-15.5); LYMPH # 2.4 10^3/uL (1.5-5.0); LYMPH % 25.3 % (24.0-44.0); MEAN CORPUSCULAR HEMOGLOBIN 20.9 pg (27.0-33.0); MEAN CORPUSCULAR HGB CONC 29.6 g/dl (32.0-36.5); MEAN CORPUSCULAR VOLUME 70.4 fl (80.0-96.0); MONO # 0.5 10^3/uL (0.0-0.8); NEUTROPHILS # 6.4 10^3/uL (1.5-8.5); NEUTROPHILS % 67.8 % (36.0-66.0); PLATELET COUNT, AUTOMATED 345 10^3/uL (150-450); RED BLOOD COUNT 5.65 10^6/uL (4.00-5.40); WHITE BLOOD COUNT 9.4 10^3/uL (4.0-10.0)
[2023-05-13 15:55] LABS: FERRITIN 11.8 NG/ML (7.3-270.7)
[2023-05-13 15:56] LABS: FREE T4 1.16 NG/DL (0.89-1.76)
[2023-05-13 16:07] LABS: HEMOGLOBIN A1c 6.5 % (4.0-6.0)
== END ==
LOC: M PLALAB 12:52
PROVIDERS: ATTEND Physician Assistant Medical
DX: F41.8 Other specified anxiety disorders (principal); E66.9 Obesity, unspecified; K21.9 Gastro-esophageal reflux disease without esophagitis; D72.829 Elevated white blood cell count, unspecified; R56.9 Unspecified convulsions; R79.89 Other specified abnormal findings of blood chemistry

== ENCOUNTER → 2023-06-02 | Outpatient (CLI) | payer MEDICARE, OTHER | LOC: M PLALAB 15:02 | PROVIDERS: ATTEND Physician Assistant Medical | DX: K21.9 Gastro-esophageal reflux disease without esophagitis (principal) ==

== ENCOUNTER → 2023-06-04 | Outpatient (CLI) | payer MEDICARE, OTHER | LOC: M WHC 10:03 | PROVIDERS: ATTEND Physician Assistant Medical | DX: Z12.31 Encounter for screening mammogram for malignant neoplasm of breast (principal) ==

== ENCOUNTER → 2023-09-17 | Outpatient (CLI) | payer MEDICARE, OTHER ==
[2023-09-17 13:36] LABS: BASO # 0.1 10^3/uL (0.0-0.2); BASO % 0.8 % (0.0-1.0); EOS # 0.2 10^3/uL (0.0-0.5); EOS % 1.9 % (0.0-3.0); HEMATOCRIT 41.4 % (36.0-47.0); HEMOGLOBIN 12.7 g/dl (12.0-15.5); LYMPH # 2.2 10^3/uL (1.5-5.0); LYMPH % 28.8 % (24.0-44.0); MEAN CORPUSCULAR HGB CONC 30.7 g/dl (32.0-36.5); MEAN CORPUSCULAR VOLUME 71.9 fl (80.0-96.0); MONO # 0.5 10^3/uL (0.0-0.8); MONO % 5.9 % (2.0-8.0); NEUTROPHILS # 4.8 10^3/uL (1.5-8.5); NEUTROPHILS % 62.1 % (36.0-66.0); PLATELET COUNT, AUTOMATED 415 10^3/uL (150-450); RED BLOOD COUNT 5.76 10^6/uL (4.00-5.40); WHITE BLOOD COUNT 7.7 10^3/uL (4.0-10.0)
[2023-09-17 13:38] LABS: ALBUMIN 3.1 G/DL (3.2-5.2); ALKALINE PHOSPHATASE 130 U/L (46-116); ALT/SGPT 58 U/L (7.0-40); AST/SGOT 41 U/L (<34); BILIRUBIN,TOTAL 0.2 MG/DL (0.3-1.2); BLOOD UREA NITROGEN 10 MG/DL (9-23); CALCIUM LEVEL 8.8 MG/DL (8.5-10.1); CARBON DIOXIDE LEVEL 24 MMOL/L (20-31); CHLORIDE LEVEL 103 MMOL/L (98-107); CREATININE FOR GFR 0.74 MG/DL (0.55-1.30); GLOMERULAR FILTRATION RATE > 60.0 (>58); GLUCOSE, FASTING 166 MG/DL (60-100); IRON (FE) 23 UG/DL (50-170); POTASSIUM SERUM 4.6 MMOL/L (3.5-5.1); SODIUM LEVEL 136 MMOL/L (136-145); TOTAL PROTEIN 6.7 G/DL (5.7-8.2)
[2023-09-17 13:39] LABS: FERRITIN 20.4 NG/ML (7.3-270.7); FREE T4 1.24 NG/DL (0.89-1.76); THYROID STIMULATING HORMONE 2.715 uIU/ML (0.55-4.78)
[2023-09-17 13:46] LABS: HEMOGLOBIN A1c 7.3 % (4.0-6.0)
== END ==
LOC: M PLALAB 10:15
PROVIDERS: ATTEND Physician Assistant Medical
DX: D50.9 Iron deficiency anemia, unspecified (principal); E66.9 Obesity, unspecified; F41.8 Other specified anxiety disorders; R56.9 Unspecified convulsions; R79.89 Other specified abnormal findings of blood chemistry

== ENCOUNTER → 2024-01-29 | Outpatient (CLI) | payer MEDICARE, OTHER ==
[~2024-01-29] MED LIST changes: -MIRA1POW3 PO; +MIRA33506 PO
[2024-01-29 16:22] LABS: BASO # 0.1 10^3/uL (0.0-0.2); BASO % 0.8 % (0.0-1.0); EOS # 0.1 10^3/uL (0.0-0.5); EOS % 1.3 % (0.0-3.0); HEMOGLOBIN 12.5 g/dl (12.0-15.5); LYMPH # 2.3 10^3/uL (1.5-5.0); LYMPH % 22.1 % (24.0-44.0); MEAN CORPUSCULAR HEMOGLOBIN 22.3 pg (27.0-33.0); MEAN CORPUSCULAR HGB CONC 29.8 g/dl (32.0-36.5); MONO # 0.5 10^3/uL (0.0-0.8); MONO % 5.1 % (2.0-8.0); NEUTROPHILS # 7.2 10^3/uL (1.5-8.5); NEUTROPHILS % 70.3 % (36.0-66.0); PLATELET COUNT, AUTOMATED 418 10^3/uL (150-450); WHITE BLOOD COUNT 10.3 10^3/uL (4.0-10.0)
== END ==
LOC: M PLALAB 12:12
PROVIDERS: ATTEND Physician Assistant Medical
DX: D72.829 Elevated white blood cell count, unspecified (principal); D50.9 Iron deficiency anemia, unspecified

== ENCOUNTER → 2024-02-12 | Outpatient (CLI) | payer MEDICARE, OTHER | LOC: M RAD 07:05 | PROVIDERS: ATTEND Physician Assistant Medical | DX: K76.0 Fatty (change of) liver, not elsewhere classified (principal); R79.89 Other specified abnormal findings of blood chemistry; E66.9 Obesity, unspecified ==

== ENCOUNTER → 2024-04-05 | Outpatient (CLI) | payer MEDICAID, MEDICARE ==
[2024-04-05 13:59] LABS: BASO # 0.1 10^3/uL (0.0-0.2); BASO % 0.8 % (0.0-1.0); EOS # 0.1 10^3/uL (0.0-0.5); EOS % 1.7 % (0.0-3.0); HEMATOCRIT 45.4 % (36.0-47.0); HEMOGLOBIN 14.3 g/dl (12.0-15.5); LYMPH # 2.3 10^3/uL (1.5-5.0); LYMPH % 30.4 % (24.0-44.0); MEAN CORPUSCULAR HEMOGLOBIN 23.7 pg (27.0-33.0); MEAN CORPUSCULAR HGB CONC 31.5 g/dl (32.0-36.5); MEAN CORPUSCULAR VOLUME 75.3 fl (80.0-96.0); MONO # 0.4 10^3/uL (0.0-0.8); NEUTROPHILS # 4.7 10^3/uL (1.5-8.5); NEUTROPHILS % 61.4 % (36.0-66.0); PLATELET COUNT, AUTOMATED 383 10^3/uL (150-450); RED BLOOD COUNT 6.03 10^6/uL (4.00-5.40); WHITE BLOOD COUNT 7.6 10^3/uL (4.0-10.0)
[2024-04-05 14:30] LABS: FERRITIN 159.1 NG/ML (7.3-270.7)
== END ==
LOC: M PLALAB 11:51
PROVIDERS: ATTEND Physician Assistant Medical
DX: E61.1 Iron deficiency (principal)

== ENCOUNTER 2024-05-01 12:39 | Emergency (ER) | payer MEDICARE ==
[~2024-05-01] VITALS: Ht 157.5 cm; Wt 97.5 kg
[2024-05-01 12:41] VITALS: TEMP 97.5
[2024-05-01 14:34] LABS: BASO # 0.1 10^3/uL (0.0-0.2); BASO % 0.7 % (0.0-1.0); EOS # 0.1 10^3/uL (0.0-0.5); EOS % 0.6 % (0.0-3.0); HEMATOCRIT 41.8 % (36.0-47.0); HEMOGLOBIN 13.7 g/dl (12.0-15.5); LYMPH # 1.8 10^3/uL (1.5-5.0); MEAN CORPUSCULAR HEMOGLOBIN 24.7 pg (27.0-33.0); MEAN CORPUSCULAR HGB CONC 32.8 g/dl (32.0-36.5); MEAN CORPUSCULAR VOLUME 75.5 fl (80.0-96.0); MONO # 0.4 10^3/uL (0.0-0.8); NEUTROPHILS # 6.2 10^3/uL (1.5-8.5); NEUTROPHILS % 72.2 % (36.0-66.0); PLATELET COUNT, AUTOMATED 262 10^3/uL (150-450); RED BLOOD COUNT 5.54 10^6/uL (4.00-5.40); WHITE BLOOD COUNT 8.6 10^3/uL (4.0-10.0)
[2024-05-01 14:35] LABS: VENOUS BASE EXCESS -1.9 (-2.0-2.0); VENOUS HCO3 21.1 MMOL/L (23.0-27.0); VENOUS O2 SATURATION 99.3 % (60.0-80.0); VENOUS PARTIAL PRESSURE CO2 31.2 mmHg (38.0-50.0); VENOUS PARTIAL PRESSURE O2 146.3 mmHg (30.0-50.0); VENOUS PH 7.448 UNITS (7.330-7.430); VENOUS TOTAL CO2 22.1 MMOL/L (24.0-28.0)
[2024-05-01] MEDS: NS 1,000 ML IV ONE (14:35)
[2024-05-01 14:54] LABS: HEMOGLOBIN A1c 13.1 % (4.0-6.0)
[2024-05-01 15:01] LABS: LIPASE 92 U/L (12-53)
[2024-05-01 15:04] LABS: ACETONE/KETONE 0.16 MMOL/L (0.02-0.27)
[2024-05-01 15:11] LABS: ALKALINE PHOSPHATASE 159 U/L (46-116); ALT/SGPT 60 U/L (7.0-40); AST/SGOT 33 U/L (<34); BILIRUBIN,DIRECT 0.1 MG/DL (<0.4); BILIRUBIN,TOTAL 0.3 MG/DL (0.3-1.2); BLOOD UREA NITROGEN 8 MG/DL (9-23); CARBON DIOXIDE LEVEL 23 MMOL/L (20-31); CHLORIDE LEVEL 94 MMOL/L (98-107); CREATININE FOR GFR 0.73 MG/DL (0.55-1.30); GLOMERULAR FILTRATION RATE > 60.0 (>58); GLUCOSE, FASTING 694 MG/DL (60-100); POTASSIUM SERUM 3.8 MMOL/L (3.5-5.1); SODIUM LEVEL 128 MMOL/L (136-145); TOTAL PROTEIN 5.8 G/DL (5.7-8.2)
[2024-05-01 15:23] LABS: OSMOLALITY SERUM 298 MOSM/KG (275-295)
[2024-05-01] MEDS: HumuLIN R (REGULAR) INSULIN (NovoLIN R) **100U/ML** PER UNIT IV ONE (15:41)
[2024-05-01] MEDS: metFORMIN (GLUCOPHAGE) 500MG TAB PO ONE (17:24)
[2024-05-01 17:45] VITALS: BP 131/92; O2SAT 98
[2024-05-01] MEDS ORDERED: METF500T13 PO (17:45)
== END 2024-05-01 18:11 | disposition home or self-care (01) ==
LOC: M ED 12:39
DX: E11.65 Type 2 diabetes mellitus with hyperglycemia (principal); I25.2 Old myocardial infarction; I10 Essential (primary) hypertension; J44.9 Chronic obstructive pulmonary disease, unspecified; G40.909 Epilepsy, unspecified, not intractable, without status epilepticus; K21.9 Gastro-esophageal reflux disease without esophagitis; Z79.82 Long term (current) use of aspirin; Z79.899 Other long term (current) drug therapy; Z88.0 Allergy status to penicillin; Z88.5 Allergy status to narcotic agent; Z88.6 Allergy status to analgesic agent; Z88.8 Allergy status to other drugs, medicaments and biological substances
CPT/HCPCS: 36415; 80048; 80076; 81001; 82010; 82803; 83036; 83690; 83930; 85025; 93005; 93041; 94760; 99285; J1815

== ENCOUNTER 2024-08-06 13:00 | Emergency (ER) | payer MEDICARE ==
[~2024-08-06] VITALS: Ht 157.5 cm; Wt 91.9 kg
[2024-08-06 15:50] LABS: BASO # 0.1 10^3/uL (0.0-0.2); BASO % 0.4 % (0.0-1.0); EOS # 0.1 10^3/uL (0.0-0.5); EOS % 0.8 % (0.0-3.0); HEMOGLOBIN 15.3 g/dl (12.0-15.5); LYMPH # 1.9 10^3/uL (1.5-5.0); LYMPH % 15.8 % (24.0-44.0); MEAN CORPUSCULAR HEMOGLOBIN 25.7 pg (27.0-33.0); MEAN CORPUSCULAR HGB CONC 32.6 g/dl (32.0-36.5); MONO # 0.6 10^3/uL (0.0-0.8); NEUTROPHILS # 9.3 10^3/uL (1.5-8.5); NEUTROPHILS % 77.5 % (36.0-66.0); PLATELET COUNT, AUTOMATED 316 10^3/uL (150-450); RED BLOOD COUNT 5.95 10^6/uL (4.00-5.40)
[2024-08-06 16:02] LABS: PROTHROMBIN TIME 12.9 SECONDS (12.5-14.5)
[2024-08-06 16:16] LABS: ETHYL ALCOHOL (ETHANOL) < 0.003 % (0.000-0.010)
[2024-08-06 16:18] LABS: BLOOD UREA NITROGEN 19 MG/DL (9-23); CALCIUM LEVEL 9.9 MG/DL (8.5-10.1); CARBON DIOXIDE LEVEL 29 MMOL/L (20-31); CHLORIDE LEVEL 106 MMOL/L (98-107); CK-MB VALUE MASS < 1.0 NG/ML (<3.6); CREATININE FOR GFR 0.95 MG/DL (0.55-1.30); GLOMERULAR FILTRATION RATE > 60.0 (>58); GLUCOSE, FASTING 111 MG/DL (60-100); POTASSIUM SERUM 4.5 MMOL/L (3.5-5.1); SODIUM LEVEL 139 MMOL/L (136-145)
[2024-08-06 16:20] LABS: THYROID STIMULATING HORMONE 1.269 uIU/ML (0.55-4.78)
[2024-08-06 16:21] LABS: FREE T4 1.44 NG/DL (0.89-1.76)
[2024-08-06 16:22] LABS: CPK CREATINE PHOSPHOKINASE 205 U/L (34-145); MB/CK RELATIVE INDEX 0.48 (< OR =4)
[2024-08-06 17:00] VITALS: BP 108/55; TEMP 97.8; O2SAT 98
== END 2024-08-06 17:09 | disposition home or self-care (01) ==
LOC: EDBD 13:00 → M ED 13:00
DX: R55 Syncope and collapse (principal); E11.9 Type 2 diabetes mellitus without complications; Z79.82 Long term (current) use of aspirin; Z79.899 Other long term (current) drug therapy; Z88.0 Allergy status to penicillin; Z88.6 Allergy status to analgesic agent; Z88.5 Allergy status to narcotic agent; Z88.8 Allergy status to other drugs, medicaments and biological substances; Z12.31 Encounter for screening mammogram for malignant neoplasm of breast; R92.323 Mammographic fibroglandular density, bilateral breasts

== ENCOUNTER → 2024-08-06 | Outpatient (CLI) | payer MEDICAID, MEDICARE ==
[~2024-08-06] MED LIST changes: +GABA-1490 PO; -GABA600T4 PO; +METF500T13 PO
== END ==
LOC: M WHC 11:14
PROVIDERS: ATTEND Physician Assistant Medical
DX: Z12.31 Encounter for screening mammogram for malignant neoplasm of breast (principal); R92.323 Mammographic fibroglandular density, bilateral breasts

== ENCOUNTER → 2024-08-27 | Outpatient (CLI) | payer MEDICARE ==
[2024-08-27 16:21] LABS: ALBUMIN 3.6 G/DL (3.2-5.2); BILIRUBIN,TOTAL 0.5 MG/DL (0.3-1.2); CALCIUM LEVEL 10.3 MG/DL (8.5-10.1); CHOLESTEROL RISK RATIO 5.12 (<5); CREATININE FOR GFR 1.05 MG/DL (0.55-1.30); GLOMERULAR FILTRATION RATE 59.5 (>58); HDL CHOLESTEROL 36.7 MG/DL (>40); LDL CHOLESTEROL 118.1 MG/DL (<100); NON-HDL-C 151.3 MG/DL; POTASSIUM SERUM 4.7 MMOL/L (3.5-5.1); TOTAL PROTEIN 6.8 G/DL (5.7-8.2)
[2024-08-27 16:23] LABS: FREE T4 1.29 NG/DL (0.89-1.76)
[2024-08-27 16:28] LABS: THYROID STIMULATING HORMONE 2.299 uIU/ML (0.55-4.78)
== END ==
LOC: M PLALAB 12:54
PROVIDERS: ATTEND Physician Assistant Medical
DX: R79.89 Other specified abnormal findings of blood chemistry (principal); F41.8 Other specified anxiety disorders; E66.9 Obesity, unspecified

== ENCOUNTER → 2024-10-04 | Outpatient (CLI) | payer MEDICARE ==
[2024-10-04 18:21] LABS: BASO # 0.1 10^3/uL (0.0-0.2); BASO % 0.7 % (0.0-1.0); EOS # 0.1 10^3/uL (0.0-0.5); EOS % 1.2 % (0.0-3.0); HEMATOCRIT 47.9 % (36.0-47.0); HEMOGLOBIN 15.1 g/dl (12.0-15.5); LYMPH # 2.3 10^3/uL (1.5-5.0); LYMPH % 25.3 % (24.0-44.0); MEAN CORPUSCULAR HEMOGLOBIN 24.8 pg (27.0-33.0); MEAN CORPUSCULAR HGB CONC 31.5 g/dl (32.0-36.5); MEAN CORPUSCULAR VOLUME 78.7 fl (80.0-96.0); MONO # 0.5 10^3/uL (0.0-0.8); MONO % 5.1 % (2.0-8.0); NEUTROPHILS # 6.1 10^3/uL (1.5-8.5); NEUTROPHILS % 67.3 % (36.0-66.0); PLATELET COUNT, AUTOMATED 349 10^3/uL (150-450); RED BLOOD COUNT 6.09 10^6/uL (4.00-5.40); WHITE BLOOD COUNT 9.1 10^3/uL (4.0-10.0)
[2024-10-04 18:28] LABS: HEMOGLOBIN A1c 5.8 % (4.0-6.0)
[2024-10-04 18:41] LABS: ALBUMIN 3.8 G/DL (3.2-5.2); BILIRUBIN,DIRECT 0.2 MG/DL (<0.4); BILIRUBIN,TOTAL 0.4 MG/DL (0.3-1.2)
== END ==
LOC: M PLALAB 14:28
PROVIDERS: ATTEND Physician Assistant Medical
DX: E11.65 Type 2 diabetes mellitus with hyperglycemia (principal); E66.9 Obesity, unspecified; F41.8 Other specified anxiety disorders; R79.89 Other specified abnormal findings of blood chemistry; D72.829 Elevated white blood cell count, unspecified; D50.9 Iron deficiency anemia, unspecified

== ENCOUNTER → 2025-08-09 | Outpatient (CLI) | payer MEDICARE ==
[~2025-08-09] MED LIST changes: -AMBI10TA PO; +ZOLP-533 PO
== END ==
LOC: M WHC 11:14
PROVIDERS: ATTEND Physician Assistant Medical
DX: Z12.31 Encounter for screening mammogram for malignant neoplasm of breast (principal)